=== PATIENT | female | born 1990 | race African-American/Black ===

== ENCOUNTER 2017-07-10 18:30 | Emergency (ER) | payer MEDICAID ==
[~2017-07-10] VITALS: Ht 165.1 cm; Wt 130.0 kg
[~2017-07-10 18:30] MED LIST: PHEN-556 PO; TOPI1CAP27 PO
[2017-07-10 18:40] VITALS: BP 143/87; PULSE 99; RESP 16; TEMP 98.7; O2SAT 99
--- NOTE | 2017-07-10 19:02 | PD ---
HPI . Cold symptoms Chief Complaint: Cold / Flu Symptoms Time Seen by Provider: 18:46 Travel History International Travel<30 days: No Contact w/Intl Traveler<30days: No Traveled to known affect area: No History of Present Illness HPI 26-year-old female presents emergency department for evaluation of cold and flu symptoms 5 days. Patient states she has chills, is coughing up yellow phlegm and has painful urination. He is unsure if she has had any fevers since she doesn't take her temperature at home. Patient denies any chest pain, shortness breath, abdominal pain, nausea, vomiting, diarrhea or lightheadedness. PFSH Past Medical History Diminished Hearing: No Tetanus Vaccination: Unknown Influenza Vaccination: Yes ?: Not LMP: NOW Past Surgical History Section: Yes Tympanostomy Tube: Yes (AND ADNOIDS) Social History Alcohol Use: No Tobacco Use: No Substance Use: No Allergies-Medications (Allergen,Severity, Reaction): Coded Allergies: Penicillins (Verified Allergy, Unknown, Hives, 07/10/17) Reported Meds & Prescriptions Reported Meds & Active Scripts Active Reported Lomaira (Phentermine HCl) 8 Mg Tab 37.5 Mg PO DAILY Review of Systems Except as stated in HPI: all other systems reviewed are Neg Physical Exam Narrative GENERAL: Well-nourished, well-developed 26-year-old female patient in no acute distress. SKIN: Focused skin assessment warm/dry. HEAD: Normocephalic. Atraumatic. EYES: No scleral icterus. No injection or drainage. NECK: Supple, trachea midline. No JVD or lymphadenopathy. THROAT: Tonsillar hypertrophy noted to bilateral tonsils but predominantly on the left. No pharyngeal injection, exudates. Airway is patent. CARDIOVASCULAR: Regular rate and rhythm without murmurs, gallops, or rubs. RESPIRATORY: Breath sounds equal bilaterally. No accessory muscle use. GASTROINTESTINAL: Abdomen soft, non-tender, nondistended. MUSCULOSKELETAL: No cyanosis, or edema. BACK: Nontender without obvious deformity. No CVA tenderness. r Data Data Last Documented VS Vital Signs Date Time Temp Pulse Resp B/P (MAP) Pulse Ox O2 Delivery O2 Flow Rate FiO2 07/10/17 18:40 98.7 99 16 143/87 (105) 99 Orders Orders Urinalysis - C+S If Indicated (07/10/17 18:56) Labs Laboratory Tests Test 07/10/17 19:35 Urine Color YELLOW Urine Turbidity SLIGHT Urine pH 5.5 Urine Specific [place] GREATER THAN 1.035 Urine Protein NEG mg/dL Urine Glucose (UA) NEG mg/dL Urine Ketones NEG mg/dL Urine Occult Blood MOD Urine Nitrite NEG Urine Bilirubin NEG Urine Leukocyte Esterase NEG Urine RBC 4-9 /hpf Urine WBC 6-8 /hpf Urine Squamous Epithelial Cells > 8 /hpf Urine Mucus MOD /lpf Microscopic Urinalysis Comment CULT NOT INDICATED MDM Medical Decision Making Medical Screen Exam Complete: Yes Emergency Medical Condition: Yes Differential Diagnosis Differential diagnoses including but not limited to URI, pharyngitis, UTI, viral syndrome Narrative Course 26-year-old female presents emergency department for evaluation of chills, coughing up phlegm and dysuria 5 days. Lungs are clear bilaterally. Patient did not cough the entire time she was in the emergency department. Patient is afebrile. UA was sent but patient is currently menstruating and that the specimen was contaminated. The patient had tonsillar hypertrophy. Patient will be treated with Motrin and discharged home with instructions to follow-up with primary care return to emergency Department with any worsening condition. Diagnosis Primary Impression: Acute viral pharyngitis Patient Instructions: General Instructions, Pharyngitis (ED) Additional Instructions: Please return to emergency department if your symptoms return or worsen. Follow up with your primary care provider. Take medications as prescribed. Med/Other Pt SpecificInfo: Prescription(s) given Scripts Ibuprofen (Ibuprofen) 600 Mg Tab 600 MG PO Q8HR Y for PAIN, #10 TAB 0 Refills Prov: Kathleen Dominguez 07/10/17 Disposition: 01 DISCHARGE HOME Condition: Stable Kathleen Dominguez Jul 10, 2017 19:02
[2017-07-10 19:44] LABS: BLOOD, URINE MOD (NEG); GLUCOSE,URINE NEG (NEG); KETONE, URINE NEG (NEG); NITRITE,URINE NEG (NEG); PH, URINE 5.5 (5.0-8.5)
[2017-07-10 19:49] LABS: URINE COLOR YELLOW (YELLW/STRAW)
[2017-07-10 19:51] LABS: MUCUS URINE MOD /lpf (OCC); SQUAMOUS EPITHELIAL CELL URINE > 8 /hpf (0-5)
[2017-07-10 19:52] LABS: COMMENT (UR) CULT NOT INDICATED; CULTURE IF INDICATED CULT NOT INDICATED
[2017-07-10] MEDS ORDERED: IBUP-232 PO (19:59)
== END 2017-07-10 20:12 | disposition home or self-care (01) ==
LOC: PHED 18:30 → MERGE 18:30 → PHEFT 20:12
DX: J02.9 Acute pharyngitis, unspecified (principal); J35.1 Hypertrophy of tonsils; R30.0 Dysuria
CPT/HCPCS: 81001; 99283

== ENCOUNTER 2017-11-09 21:30 | Emergency (ER) | payer MEDICAID ==
[~2017-11-09] VITALS: Ht 167.6 cm; Wt 134.0 kg
[~2017-11-09 21:30] MED LIST changes: +IBUP-232 PO; -TOPI1CAP27 PO
[2017-11-09 21:46] VITALS: BP 157/93; PULSE 100; RESP 20; TEMP 102.6; O2SAT 99
[2017-11-09] MEDS ORDERED: SODIUM CHLOR 0.9% 1000 ML INJ 1,000 ML IV SCH (22:07)
--- NOTE | 2017-11-09 22:11 | PD ---
HPI Chief Complaint: Cold / Flu Symptoms Time Seen by Provider: 22:02 Travel History International Travel<30 days: No Contact w/Intl Traveler<30days: No Traveled to known affect area: No History of Present Illness HPI 26-year-old female approximately 14 weeks , here for evaluation of chills, congestion, fever. Symptoms have been going on for about 2-3 days. She has had subjective fevers and chills and has not checked her temperature until she was checked in triage today and was noted to have a temp of 102.6F. She reports that she is about 16 weeks and had an IUP confirmed that another hospital. 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 No abdominal pain, vaginal bleeding, or discharge. She denies cough. PFSH Past Medical History Diminished Hearing: No Tetanus Vaccination: Unknown ?: Not Past Surgical History Section: Yes Tympanostomy Tube: Yes (AND ADNOIDS) Social History Alcohol Use: No Tobacco Use: No Substance Use: No Allergies-Medications (Allergen,Severity, Reaction): Coded Allergies: amoxicillin (Verified Allergy, Severe, Hives, 11/09/17) Penicillins (Verified Allergy, Unknown, Hives, 11/09/17) Reported Meds & Prescriptions Reported Meds & Active Scripts Active Macrobid (Nitrofurantoin Monoh/Nitrofur Macro) 100 Mg Cap 100 Mg PO BID 7 Days Tamiflu (Oseltamivir Phosphate) 75 Mg Cap 75 Mg PO BID 5 Days Ibuprofen 600 Mg Tab 600 Mg PO Q8HR PRN Reported Lomaira (Phentermine HCl) 8 Mg Tab 37.5 Mg PO DAILY Review of Systems Except as stated in HPI: all other systems reviewed are Neg Physical Exam Narrative GENERAL: Well-developed, well-nourished, comfortable, no apparent distress. SKIN: Focused skin assessment warm/dry. No rash. HEAD: Atraumatic. Normocephalic. EYES: Pupils equal and round. No scleral icterus. No injection or drainage. ENT: No nasal bleeding or discharge. Mucous membranes pink and moist. NECK: Trachea midline. No JVD. No nuchal rigidity. CARDIOVASCULAR: Regular rate and rhythm. RESPIRATORY: No accessory muscle use. Clear to auscultation. Breath sounds equal bilaterally. GASTROINTESTINAL: Abdomen soft, non-tender, nondistended. MUSCULOSKELETAL: No obvious deformities. No clubbing. No cyanosis. No edema. NEUROLOGICAL: Awake and alert. No obvious cranial nerve deficits. Motor grossly within normal limits. Normal speech. PSYCHIATRIC: Appropriate mood and affect; insight and judgment normal. Data Data Last Documented VS Vital Signs Date Time Temp Pulse Resp B/P (MAP) Pulse Ox O2 Delivery O2 Flow Rate FiO2 11/10/17 00:28 18 99 Room Air 11/09/17 23:46 99.5 11/09/17 21:46 100 157/93 (114) Orders Orders Complete Blood Count With Diff (11/09/17 22:07) Comprehensive Metabolic Panel (11/09/17 22:07) Urinalysis - C+S If Indicated (11/09/17 22:07) Iv Access Insert/Monitor (11/09/17 22:07) Ecg Monitoring (11/09/17 22:07) Oximetry (11/09/17 22:07) Sodium Chlor 0.9% 1000 Ml Inj (Ns 1000 M (11/09/17 22:07) Sodium Chloride 0.9% Flush (Ns Flush) (11/09/17 22:15) Influenzae A/B Antigen (11/09/17 22:07) Group A Rapid Strep Screen (11/09/17 22:07) Acetaminophen (Tylenol) (11/09/17 22:15) Electrocardiogram (11/09/17 ) Urine Culture (11/09/17 22:40) Strep Culture (Group A) (11/09/17 22:40) Ceftriaxone Inj (Rocephin Inj) (11/09/17 23:15) Sodium Chlor 0.9% 1000 Ml Inj (Ns 1000 M (11/09/17 23:15) Nitrofurantoin Monohyd Macrocr (Macrobid (11/09/17 23:15) Oseltamivir (Tamiflu) (11/10/17 00:00) Chest, Single Ap (11/10/17 ) Lung Quantification Perfusion (11/10/17 ) Ckmb (Isoenzyme) Profile (11/09/17 22:40) Troponin I (11/09/17 22:40) Labs Laboratory Tests Test 11/09/17 22:40 White Blood Count 7.6 TH/MM3 Red Blood Count 4.18 MIL/MM3 Hemoglobin 11.0 GM/DL Hematocrit 33.5 % Mean Corpuscular Volume 80.2 FL Mean Corpuscular Hemoglobin 26.4 PG Mean Corpuscular Hemoglobin Concent 32.9 % Red Cell Distribution Width 12.8 % Platelet Count 263 TH/MM3 Mean Platelet Volume 7.7 FL Neutrophils (%) (Auto) 63.6 % Lymphocytes (%) (Auto) 24.3 % Monocytes (%) (Auto) 10.0 % Eosinophils (%) (Auto) 0.3 % Basophils (%) (Auto) 1.8 % Neutrophils # (Auto) 4.9 TH/MM3 Lymphocytes # (Auto) 1.8 TH/MM3 Monocytes # (Auto) 0.8 TH/MM3 Eosinophils # (Auto) 0.0 TH/MM3 Basophils # (Auto) 0.1 TH/MM3 CBC Comment DIFF FINAL Differential Comment Urine Color YELLOW Urine Turbidity SLIGHT Urine pH 6.0 Urine Specific [place] 1.019 Urine Protein NEG mg/dL Urine Glucose (UA) NEG mg/dL Urine Ketones NEG mg/dL Urine Occult Blood NEG Urine Nitrite NEG Urine Bilirubin NEG Urine Leukocyte Esterase SMALL Urine RBC 0-2 /hpf Urine WBC 9-14 /hpf Urine Squamous Epithelial Cells > 8 /hpf Urine Bacteria MANY /hpf Microscopic Urinalysis Comment CULTURE INDICATED Blood Urea Nitrogen 8 MG/DL Creatinine 0.68 MG/DL Random Glucose 88 MG/DL Total Protein 7.3 GM/DL Albumin 3.0 GM/DL Calcium Level 8.7 MG/DL Alkaline Phosphatase 62 U/L Aspartate Amino Transf (AST/SGOT) 10 U/L Alanine Aminotransferase (ALT/SGPT) 20 U/L Total Bilirubin 0.2 MG/DL Sodium Level 129 MEQ/L Potassium Level 3.5 MEQ/L Chloride Level 98 MEQ/L Carbon Dioxide Level 22.5 MEQ/L Anion Gap 9 MEQ/L Estimat Glomerular Filtration Rate 128 ML/MIN [facility] Medical Decision Making Medical Screen Exam Complete: Yes Emergency Medical Condition: Yes Interpretation(s) EKG: Sinus, rate 97, normal axis, normal intervals, no acute ischemic abnormality, S1Q3T3 pattern Differential Diagnosis Influenza, URI, viral illness, dehydration Narrative Course Initial vital signs show heart rate 100, blood pressure 157/93, pulse ox 99% on room air, oral temp of 102.6 degrees Fahrenheit. Blood pressure and heart rate improved after receiving 2 L of normal saline IV and oral Tylenol. Temp improved to 99.5F. CBC: WBC 7.6, hemoglobin 11, hematocrit 33.5, platelets 267, monocytes 10%. CMP is remarkable for sodium 129, otherwise unremarkable. Influenza is negative. Group A strep is negative. UA: Small leukocyte esterase, 9-14 wbc's, greater than 8 squamous epithelial cells, many bacteria. Bedside transabdominal ultrasound performed by me shows an IUP with a heart rate of 160 bpm. Patient was made aware of all findings. She endorses having a substernal chest discomfort for the last couple of days that appears to be pleuritic in nature. She denies cough or hemoptysis, however she reports history of DVT after delivering one of her children requiring 8 weeks of anticoagulation several years ago. On exam there is no calf tenderness or swelling. She is overweight and is . Her EKG does have an S1Q3T3 pattern, and she is tachycardic with a fever. Influenza is negative and the patient does not have cough or upper respiratory symptoms. I discussed with the patient and I am concerned about a possible PE and discussed the plan of performing chest x-ray and VQ scan. She understands that there is some radiation exposure with the VQ scan, however the benefits of performing the scan far outweigh the risks. She would like to proceed with the scan. At approximately 1:00 AM at the end of my shift the patient was signed out to Dr. Donovan to follow-up with VQ scan and disposition. Procedures Procedure Narrative Bedside transabdominal ultrasound: Using the curvilinear ultrasound probe in bedside transabdominal ultrasound was performed and shows an IUP with a heart rate of 160 bpm. Scripts Nitrofurantoin Monohydrate Macrocrystals (Macrobid) 100 Mg Cap 100 MG PO BID for Infection for 7 Days, #14 CAP 0 Refills Prov: Dallin Martin MD 11/10/17 Oseltamivir (Tamiflu) 75 Mg Cap 75 MG PO BID for Mgmt Viral Infection for 5 Days, #10 CAP 0 Refills Prov: Dallin Martin MD 11/10/17 Dallin Martin MD Nov 09, 2017 22:11
[2017-11-09] MEDS ORDERED: SODIUM CHLORIDE 0.9% FLUSH 10 ML FLUSH IV FLUSH PRN (22:15)
[2017-11-09] MEDS ORDERED: ACETAMINOPHEN 325 MG TAB PO ONE (22:15)
[2017-11-09 22:49] LABS: BILIRUBIN, URINE NEG (NEG); BLOOD, URINE NEG (NEG); GLUCOSE,URINE NEG (NEG); KETONE, URINE NEG (NEG); NITRITE,URINE NEG (NEG); URINE LEUKOCYTE ESTERASE SMALL (NEG)
[2017-11-09 22:50] LABS: AUTOMATED NEUTROPHIL # 4.9 TH/MM3 (1.8-7.7); BASOPHIL # 0.1 TH/MM3 (0-0.2); BASOPHIL % 1.8 % (0.0-2.0); EOSINOPHIL % 0.3 % (0.0-4.0); HEMATOCRIT 33.5 % (35.0-46.0); LYMPH % 24.3 % (9.0-44.0); LYMPHOCYTE # 1.8 TH/MM3 (1.0-4.8); MEAN CELL VOLUME 80.2 FL (80.0-100.0); MEAN CORPUSCULAR HEMOGLOBIN 26.4 PG (27.0-34.0); MEAN CORPUSCULAR HGB CONC 32.9 % (32.0-36.0); MEAN PLATELET VOLUME 7.7 FL (7.0-11.0); MONOCYTE # 0.8 TH/MM3 (0-0.9); NEUT % 63.6 % (16.0-70.0); PLATELET COUNT 263 TH/MM3 (150-450); RED BLOOD COUNT 4.18 MIL/MM3 (4.00-5.30); RED CELL DISTRIBUTION WIDTH 12.8 % (11.6-17.2); WHITE BLOOD COUNT 7.6 TH/MM3 (4.0-11.0)
[2017-11-09 22:56] LABS: URINE COLOR YELLOW (YELLW/STRAW)
[2017-11-09 22:58] LABS: BACTERIA, URINE MANY /hpf; CHLORIDE 98 MEQ/L (98-107); RBC, URINE 0-2 /hpf (0-3); SODIUM (NA) 129 MEQ/L (136-145); SQUAMOUS EPITHELIAL CELL URINE > 8 /hpf (0-5)
[2017-11-09 23:01] LABS: BICARBONATE 22.5 MEQ/L (21.0-32.0); CALCIUM 8.7 MG/DL (8.5-10.1)
[2017-11-09 23:02] LABS: BLOOD UREA NITROGEN 8 MG/DL (7-18); GLUCOSE,RANDOM 88 MG/DL (74-106)
[2017-11-09 23:04] LABS: ALT (GPT) 20 U/L (10-53); AST (GOT) 10 U/L (15-37)
[2017-11-09 23:05] LABS: CREATININE 0.68 MG/DL (0.50-1.00); GLOMERULAR FILTRATION RATE 128 ML/MIN (>89)
[2017-11-09 23:06] LABS: TOTAL BILIRUBIN ADULT 0.2 MG/DL (0.2-1.0); TOTAL PROTEIN 7.3 GM/DL (6.4-8.2)
[2017-11-09 23:07] LABS: ALKALINE PHOSPHATASE 62 U/L (45-117)
[2017-11-09] MEDS ORDERED: NITROFURANTOIN MONOHYD MACROCR 100 MG CAP PO ONE (23:15)
[2017-11-09] MEDS ORDERED: SODIUM CHLOR 0.9% 1000 ML INJ 1,000 ML IV ONE (23:15)
[2017-11-09] MEDS ORDERED: cefTRIAXone INJ 1,000 MG in SODIUM CHLORIDE 0.9% INJ 100 ML IV ONE (23:15)
[2017-11-09 23:46] VITALS: RESP 18; TEMP 99.5; O2SAT 99
[2017-11-10] MEDS ORDERED: OSELTAMIVIR PHOSPHATE 75 MG CAP PO ONE
[2017-11-10] MEDS ORDERED: MACR100C2 PO (00:25)
[2017-11-10] MEDS ORDERED: OSEL75 PO (00:25)
[2017-11-10 00:28] VITALS: RESP 18; O2SAT 99
--- NOTE | 2017-11-10 00:29 | RADRPT ---
EXAM DATE/TIME: 11/10/2017 00:13 [facility] COMPARISON: No previous studies available for comparison. INDICATIONS : Cough, chest pain for 4 days MEDICAL HISTORY : None. SURGICAL HISTORY : None. ENCOUNTER: Initial ACUITY: 4 - 6 days PAIN SCORE: 8/10 LOCATION: Left chest FINDINGS: A single view of the chest demonstrates the lungs to be symmetrically aerated without evidence of mas s, infiltrate or effusion. The cardiomediastinal contours are unremarkable. Osseous structures are intact. CONCLUSION: No acute disease. René Tovar MD on November 10, 2017 at 0:27 Board Certified Radiologist. This report was verified electronically.
[2017-11-10 00:41] LABS: TROPONIN I LESS THAN 0.02 NG/ML (0.02-0.05)
[2017-11-10 00:43] VITALS: BP 124/61; PULSE 90; RESP 18; O2SAT 100
[2017-11-10] MEDS ORDERED: ONDANSETRON HCL 4 MG/2 ML VIAL IV PUSH ONE (00:45)
--- NOTE | 2017-11-10 02:52 | RADRPT ---
EXAM DATE/TIME: 11/10/2017 02:26 [facility] COMPARISON: No previous studies available for comparison. INDICATIONS : Short of breath for 3 days. DOSE: 1 mCi Tc99m Labeled MAA IV MEDICAL HISTORY : None SURGICAL HISTORY : section. ENCOUNTER: Initial ACUITY: 3 days PAIN SCALE: 3/10 LOCATION: Bilateral chest TECHNIQUE: The patient was injected with MAA, and eight-view perfusion scan was performed. FINDINGS: PERFUSION: There is a homogenous pattern of radiotracer uptake throughout both lungs. CONCLUSION: 1. Negative for pulmonary embolus. René Tovar MD on November 10, 2017 at 2:50 Board Certified Radiologist. This report was verified electronically.
--- NOTE | 2017-11-10 03:11 | PD ---
Physical Exam Time Seen by Provider: 03:09 Narrative : Left this patient with me to check the lung scan and make a disposition, likely discharge. Data Data Last Documented VS Vital Signs Date Time Temp Pulse Resp B/P (MAP) Pulse Ox O2 Delivery O2 Flow Rate FiO2 11/10/17 00:43 90 18 124/61 (82) 100 Room Air 11/09/17 23:46 99.5 Orders Orders Complete Blood Count With Diff (11/09/17 22:07) Comprehensive Metabolic Panel (11/09/17 22:07) Urinalysis - C+S If Indicated (11/09/17 22:07) Iv Access Insert/Monitor (11/09/17 22:07) Ecg Monitoring (11/09/17 22:07) Oximetry (11/09/17 22:07) Sodium Chlor 0.9% 1000 Ml Inj (Ns 1000 M (11/09/17 22:07) Sodium Chloride 0.9% Flush (Ns Flush) (11/09/17 22:15) Influenzae A/B Antigen (11/09/17 22:07) Group A Rapid Strep Screen (11/09/17 22:07) Acetaminophen (Tylenol) (11/09/17 22:15) Electrocardiogram (11/09/17 ) Urine Culture (11/09/17 22:40) Strep Culture (Group A) (11/09/17 22:40) Ceftriaxone Inj (Rocephin Inj) (11/09/17 23:15) Sodium Chlor 0.9% 1000 Ml Inj (Ns 1000 M (11/09/17 23:15) Nitrofurantoin Monohyd Macrocr (Macrobid (11/09/17 23:15) Oseltamivir (Tamiflu) (11/10/17 00:00) Chest, Single Ap (11/10/17 ) Ckmb (Isoenzyme) Profile (11/09/17 22:40) Troponin I (11/09/17 22:40) Ondansetron Inj (Zofran Inj) (11/10/17 00:45) Lung Scan - Perfusion (11/10/17 ) Labs Laboratory Tests Test 11/09/17 22:40 White Blood Count 7.6 TH/MM3 Red Blood Count 4.18 MIL/MM3 Hemoglobin 11.0 GM/DL Hematocrit 33.5 % Mean Corpuscular Volume 80.2 FL Mean Corpuscular Hemoglobin 26.4 PG Mean Corpuscular Hemoglobin Concent 32.9 % Red Cell Distribution Width 12.8 % Platelet Count 263 TH/MM3 Mean Platelet Volume 7.7 FL Neutrophils (%) (Auto) 63.6 % Lymphocytes (%) (Auto) 24.3 % Monocytes (%) (Auto) 10.0 % Eosinophils (%) (Auto) 0.3 % Basophils (%) (Auto) 1.8 % Neutrophils # (Auto) 4.9 TH/MM3 Lymphocytes # (Auto) 1.8 TH/MM3 Monocytes # (Auto) 0.8 TH/MM3 Eosinophils # (Auto) 0.0 TH/MM3 Basophils # (Auto) 0.1 TH/MM3 CBC Comment DIFF FINAL Differential Comment Urine Color YELLOW Urine Turbidity SLIGHT Urine pH 6.0 Urine Specific [place] 1.019 Urine Protein NEG mg/dL Urine Glucose (UA) NEG mg/dL Urine Ketones NEG mg/dL Urine Occult Blood NEG Urine Nitrite NEG Urine Bilirubin NEG Urine Leukocyte Esterase SMALL Urine RBC 0-2 /hpf Urine WBC 9-14 /hpf Urine Squamous Epithelial Cells > 8 /hpf Urine Bacteria MANY /hpf Microscopic Urinalysis Comment CULTURE INDICATED Blood Urea Nitrogen 8 MG/DL Creatinine 0.68 MG/DL Random Glucose 88 MG/DL Total Protein 7.3 GM/DL Albumin 3.0 GM/DL Calcium Level 8.7 MG/DL Alkaline Phosphatase 62 U/L Aspartate Amino Transf (AST/SGOT) 10 U/L Alanine Aminotransferase (ALT/SGPT) 20 U/L Total Bilirubin 0.2 MG/DL Sodium Level 129 MEQ/L Potassium Level 3.5 MEQ/L Chloride Level 98 MEQ/L Carbon Dioxide Level 22.5 MEQ/L Anion Gap 9 MEQ/L Estimat Glomerular Filtration Rate 128 ML/MIN Total Creatine Kinase 47 U/L Troponin I LESS THAN 0.02 NG/ML [facility] Medical Record Reviewed: Yes Supervised Visit with KP: Yes Interpretation(s) Influenza a/B antigen is negative for flu a and flu B antigen. The perfusion lung scan shows no pulmonary embolus. The chest x-ray shows no acute change. The EKG shows sinus rhythm with a rate of [address] elevation or depression. Differential Diagnosis Pulmonary embolus, COPD, viral syndrome, pneumonia, flu syndrome Narrative Course The patient appears to have a viral upper respiratory infection. There is no evidence for any of the other entities as above. Plan: Follow-up with her primary care physician next week Additional Instruction: Follow-up with your primary care physician next week. Drink plenty of liquids and rested. She will get prochlorperazine for nausea. Med/Other Pt SpecificInfo: Prescription(s) given Scripts Prochlorperazine Maleate (Prochlorperazine Maleate) 10 Mg Tab 10 MG PO Q6H Y for NAUSEA OR VOMITING, #30 TAB 0 Refills Prov: Barry Donovan MD 11/10/17 Nitrofurantoin Monohydrate Macrocrystals (Macrobid) 100 Mg Cap 100 MG PO BID for Infection for 7 Days, #14 CAP 0 Refills Prov: Dallin Martin MD 11/10/17 Oseltamivir (Tamiflu) 75 Mg Cap 75 MG PO BID for Mgmt Viral Infection for 5 Days, #10 CAP 0 Refills Prov: Dallin Martin MD 11/10/17 Disposition: 01 DISCHARGE HOME Condition: Stable Barry Donovan MD Nov 10, 2017 03:11
[2017-11-10] MEDS ORDERED: PROC10TA PO (03:17)
[2017-11-10 03:50] VITALS: BP 122/64
--- NOTE | 2017-11-10 14:31 | EKG ---
Date Performed: 11/09/2017 Time Performed: 22:16:08 PTAGE: 26 years EKG: Sinus rhythm NORMAL ECG NO PREVIOUS TRACING DOCTOR: Sandra Vann Interpretating Date/Time 11/10/2017 14:27:18
== END 2017-11-10 03:55 | disposition home or self-care (01) ==
LOC: PHEFT 21:30
DX: O26.892 Other specified pregnancy related conditions, second trimester (principal); Z3A.16 16 weeks gestation of pregnancy; Z88.0 Allergy status to penicillin; Z88.1 Allergy status to other antibiotic agents
CPT/HCPCS: 71045; 78580; 80053; 81001; 82550; 84484; 85025; 87081; 87086; 87804; 87880; 93005; 96361; 96374; 99285; A9540; J2405; J7030

== ENCOUNTER → 2018-01-10 | Outpatient (CLI) | payer MEDICAID ==
[~2018-01-10] MED LIST changes: +MACR100C2 PO; +OSEL75 PO; +PROC10TA PO
== END ==
LOC: HPND 08:47
PROVIDERS: ATTEND Obstetrics & Gynecology
DX: O44.02 Complete placenta previa NOS or without hemorrhage, second trimester (principal); O22.32 Deep phlebothrombosis in pregnancy, second trimester; O99.212 Obesity complicating pregnancy, second trimester; E66.01 Morbid (severe) obesity due to excess calories; Z68.42 Body mass index [BMI] 45.0-49.9, adult; O34.211 Maternal care for low transverse scar from previous cesarean delivery; O40.2XX0 Polyhydramnios, second trimester, not applicable or unspecified
CPT/HCPCS: 76811

== ENCOUNTER → 2018-02-07 | Outpatient (CLI) | payer MEDICAID | LOC: HPND 08:51 | PROVIDERS: ATTEND Obstetrics & Gynecology | DX: O99.212 Obesity complicating pregnancy, second trimester (principal); E66.01 Morbid (severe) obesity due to excess calories; Z68.42 Body mass index [BMI] 45.0-49.9, adult; O40.2XX0 Polyhydramnios, second trimester, not applicable or unspecified; O44.02 Complete placenta previa NOS or without hemorrhage, second trimester; O22.32 Deep phlebothrombosis in pregnancy, second trimester; O34.211 Maternal care for low transverse scar from previous cesarean delivery; O09.892 Supervision of other high risk pregnancies, second trimester; O99.112 Other diseases of the blood and blood-forming organs and certain disorders involving the immune mechanism complicating pregnancy, second trimester; D68.59 Other primary thrombophilia | CPT/HCPCS: 76816; 76817 ==

== ENCOUNTER → 2018-03-07 | Outpatient (CLI) | payer MEDICAID | LOC: HPND 08:35 | PROVIDERS: ATTEND Obstetrics & Gynecology | DX: O99.213 Obesity complicating pregnancy, third trimester (principal); E66.01 Morbid (severe) obesity due to excess calories; Z68.42 Body mass index [BMI] 45.0-49.9, adult; O40.3XX0 Polyhydramnios, third trimester, not applicable or unspecified; O44.03 Complete placenta previa NOS or without hemorrhage, third trimester | CPT/HCPCS: 76816 ==

== ENCOUNTER 2018-03-10 04:15 | Inpatient (IN) | payer MEDICAID ==
[~2018-03-10] VITALS: Ht 165.1 cm; Wt 140.0 kg
[2018-03-10] MEDS ORDERED: SODIUM CHLORIDE 0.9% FLUSH 10 ML FLUSH IV FLUSH PRN (05:00)
[2018-03-10] MEDS ORDERED: MAGNESIUM SULFATE 4 GM PREMIX 100 ML IV ONE (05:00)
[2018-03-10] MEDS ORDERED: CALCIUM GLUCONATE 10% 1 GM/10 ML VIAL IV PUSH PRN (05:00)
[2018-03-10 05:02] LABS: AUTOMATED NEUTROPHIL # 6.5 TH/MM3 (1.8-7.7); BASOPHIL # 0.1 TH/MM3 (0-0.2); BASOPHIL % 0.6 % (0.0-2.0); EOSINOPHIL # 0.1 TH/MM3 (0-0.4); EOSINOPHIL % 1.4 % (0.0-4.0); HEMATOCRIT 32.7 % (35.0-46.0); LYMPH % 19.1 % (9.0-44.0); LYMPHOCYTE # 1.7 TH/MM3 (1.0-4.8); MEAN CELL VOLUME 80.5 FL (80.0-100.0); MEAN CORPUSCULAR HEMOGLOBIN 27.2 PG (27.0-34.0); MEAN CORPUSCULAR HGB CONC 33.7 % (32.0-36.0); MEAN PLATELET VOLUME 7.8 FL (7.0-11.0); MONO % 7.5 % (0.0-8.0); MONOCYTE # 0.7 TH/MM3 (0-0.9); NEUT % 71.4 % (16.0-70.0); PLATELET COUNT 296 TH/MM3 (150-450); RED BLOOD COUNT 4.07 MIL/MM3 (4.00-5.30); RED CELL DISTRIBUTION WIDTH 15.8 % (11.6-17.2); WHITE BLOOD COUNT 9.2 TH/MM3 (4.0-11.0)
--- NOTE | 2018-03-10 05:13 | HHI.HP ---
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 She is having little to no pain however she is britni every 3-4 minutes, heart rate tracing is reactive. 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 Also this is noted to have polyhydramnios and an LGA baby on a recent OB diagnostic ultrasound done 3 days ago Weeks Gestation: 31 Para: 3 : 4 History Past Medical History Narrative Medical In a hypercoagulable state due to protein S deficiency led to a DVT after her last ended that was in her left lower leg which was treated with Lovenox and warfarin p.o. Obstetric History Obstetric History Patient had 2 vaginal deliveries and a section for distress and preeclampsia Past Surgical History Narrative Surgical section Family History Family History: Social History Alcohol Use: No Tobacco Use: No Substance Abuse: No Allergies-Medications (Allergen,Severity, Reaction): Coded Allergies: amoxicillin (Verified Allergy, Severe, Hives, 11/09/17) Penicillins (Verified Allergy, Unknown, Hives, 11/09/17) Home Meds Active Scripts Prochlorperazine Maleate (Prochlorperazine Maleate) 10 Mg Tab, 10 MG PO Q6H Y for NAUSEA OR VOMITING, #30 TAB 0 Refills Prov:Barry Donovan MD 11/10/17 Nitrofurantoin Monohydrate Macrocrystals (Macrobid) 100 Mg Cap, 100 MG PO BID for Infection for 7 Days, #14 CAP 0 Refills Prov:Dallin Martin MD 11/10/17 Oseltamivir (Tamiflu) 75 Mg Cap, 75 MG PO BID for Mgmt Viral Infection for 5 Days, #10 CAP 0 Refills Prov:Dallin Martin MD 11/10/17 Ibuprofen (Ibuprofen) 600 Mg Tab, 600 MG PO Q8HR Y for PAIN, #10 TAB 0 Refills Prov:Kathleen Dominguez 07/10/17 Reported Medications Phentermine (Lomaira) 8 Mg Tab, 37.5 MG PO DAILY for Weight Management, #90 TAB 0 Refills 04/07/17 Review of Systems General / Constitutional: No: Fever, Weight Gain, Chills, Other Eyes: No: Diploplia, Blurred Vision, Visual changes, Pain, Photophobia HENT: No: Headaches, Vertigo, Lightheadedness Cardiovascular: No: Irregular Rhythm, Chest Pain or Discomfort, Palpitations, Tachycardia, Syncope, Varicosities, Edema, Cyanosis Respiratory: No: Cough, Short of Breath, Other Gastrointestinal: No: Nausea, Vomiting, Diarrhea Genitourinary: Vaginal Bleeding, No: Decreased Urinary Output, Oliguria Musculoskeletal: No: Limited ROM, Weakness, Cramping, Edema, Pain Skin: No Rash, No Itching, No Dryness, No Lumps, No Change in Pigmentation, No Change in Nails, No Alopecia, No Lesions Neurologic: No: Weakness, Dizziness, Syncope, Focal Abnormalities, Coordination Problem, Headache, Slurred Speech, Seizures Psychiatric: No: Depression, Suicidal Ideations, Homicidal Ideation Endocrine: No: Heat Intolerance, Cold Intolerance, Polydipsia, Polyuria, Other Physical Exam Narrative GENERAL: Well-nourished, obese patient. SKIN: Warm and dry. HEAD: Normocephalic and atraumatic. EYES: No scleral icterus. No injection or drainage. ENT: No nasal drainage noted. Mucous membranes pink. Airway patent. NECK: Supple, trachea midline. No JVD. CARDIOVASCULAR: Regular rate and rhythm without murmurs, gallops, or rubs. RESPIRATORY: Breath sounds equal bilaterally. No accessory muscle use. BREASTS: Bilateral exam showed no masses , no retractions, no nipple discharge. ABDOMEN/GI: Abdomen soft, non-tender, bowel sounds present, no rebound, no guarding has a large pannus Gravid to [32-] weeks size Fundal Height: [-32] GENITOURINARY: External Genitalia: intact and normal in appearance Is a large blood clot size of a tennis ball in the vagina but no active bleeding just an ooze from the cervix Cervix: [Appears closed but is difficult to visualize and no digital exam was done-] Effacement: [Thick-] Station: [High-] Presentation: [-Was cephalic 3 days ago on ultrasound] Membranes: [intact ] Uterine Contractions: [Every 3-4 minutes-] FHT's: Category: [1-] Baseline: [133-] Reactive: [R-] Variability: [mod-] Decels: [none-] EXTREMITIES: No cyanosis or edema. BACK: Nontender without obvious deformity. No CVA tenderness. NEUROLOGICAL: Awake and alert. Motor and sensory grossly within normal limits. Five out of 5 muscle strength in all muscle groups. Normal speech. Caprini VTE Risk Assessment Caprini VTE Risk Assessment: Mod/High Risk (score >= 2) Caprini Risk Assessment Model Point Value = 1 Point Value = 2 Point Value = 3 Point Value = 5 Age 41-60 Minor surgery BMI > 25 kg/m2 Swollen legs Varicose veins or History of unexplained or recurrent spontaneous Oral contraceptives or hormone replacement Sepsis (< 1 month) Serious lung disease, including pneumonia (< 1 month) Abnormal pulmonary function Acute myocardial infarction Congestive heart failure (< 1 month) History of inflammatory bowel disease Medical patient at bed rest Age 61-74 Arthroscopic surgery Major open surgery (> 45 min) Laparoscopic surgery (> 45 min) Malignancy Confined to bed (> 72 hours) Immobilizing plaster cast Central venous access Age >= 75 History of VTE Family history of VTE Factor V Leiden Prothrombin [id number] Lupus anticoagulant Anticardiolipin antibodies Elevated serum homocysteine Heparin-induced thrombocytopenia Other congenital or acquired thrombophilia Stroke (< 1 month) Elective arthroplasty Hip, pelvis, or leg fracture Acute spinal cord injury (< 1 month) Prophylaxis Regimen Total Risk Factor Score Risk Level Prophylaxis Regimen 0-1 Low Early ambulation 2 Moderate Order ONE of the following: *Sequential Compression Device (SCD) *Heparin 5000 units SQ BID 3-4 Higher Order ONE of the following medications: *Heparin 5000 units SQ TID *Enoxaparin/Lovenox 40 mg SQ daily (WT < 150 kg, CrCl > 30 mL/min) *Enoxaparin/Lovenox 30 mg SQ daily (WT < 150 kg, CrCl > 10-29 mL/min) *Enoxaparin/Lovenox 30 mg SQ BID (WT < 150 kg, CrCl > 30 mL/min) AND/OR *Sequential Compression Device (SCD) 5 or more Highest Order ONE of the following medications: *Heparin 5000 units SQ TID (Preferred with Epidurals) *Enoxaparin/Lovenox 40 mg SQ daily (WT < 150 kg, CrCl > 30 mL/min) *Enoxaparin/Lovenox 30 mg SQ daily (WT < 150 kg, CrCl > 10-29 mL/min) *Enoxaparin/Lovenox 30 mg SQ BID (WT < 150 kg, CrCl > 30 mL/min) AND *Sequential Compression Device (SCD) Data Data Orders Orders Ob (2e) Additional Admit Info (03/10/18 04:48) Admit To Inpatient (03/10/18 ) Diet Npo (03/10/18 Breakfast) Vital Signs (Adult) [id number] AWAKE (03/10/18 04:50) Heart (03/10/18 04:50) Activity Bed Rest (03/10/18 04:50) Complete Blood Count With Diff (03/10/18 04:50) Urinalysis - C+S If Indicated (03/10/18 04:50) Sodium Chloride 0.9% Flush (Ns Flush) (03/10/18 09:00) Sodium Chloride 0.9% Flush (Ns Flush) (03/10/18 05:00) Ob/Psych Drug Screen, Urine (03/10/18 04:50) Betamethasone Inj (Celestone Soluspan In (03/10/18 05:00) Coag Profile (03/10/18 04:53) Type And Screen (03/10/18 04:53) Ondansetron Odt (Zofran Odt) (03/10/18 05:00) Urinary Catheter Management MARIE.Q8H (03/10/18 04:54) Magnesium Sulfate 40 Gm Premix (Magnesiu (03/10/18 04:54) Calcium Gluconate Inj (Calcium Gluconate (03/10/18 05:00) Comprehensive Metabolic Panel (03/10/18 04:54) Magnesium Sulfate 4 Gm Premix (Magnesium (03/10/18 05:00) Vancomycin Inj (Vancomycin Inj) (03/10/18 05:00) Labs Laboratory Tests Test 03/10/18 04:19 Assessment/Plan Assessment and Plan Impression -third trimester bleeding secondary to posterior previa with now the "sentinel bleed" at 31-32 weeks gestation Protein S deficiency for which she is on blood thinners of baby aspirin and Lovenox q d Polyhydramnios LGA baby Previous contractions Plan--admit to labor and delivery until delivery , plan IV mag sulfate for tocolyse this and neuro protection, check coagulation profile CBC CMP type and screen, would hold anticoagulation drugs at this time, IV vancomycin for antibiotic coverage,[allergic to penicillin] , betamethasone 12 mg , 2 injections 24 hours apart If patient has another large bleeding episode move to delivery by section Santhosh So II, MD Mar 10, 2018 05:13
[2018-03-10 05:15] LABS: INTERNATIONAL NORMALIZED RATIO 0.9 RATIO; PROTHROMBIN TIME - PATIENT 9.3 SEC (9.8-11.6)
[2018-03-10 05:20] LABS: ALBUMIN 2.7 GM/DL (3.4-5.0); AST (GOT) 10 U/L (15-37); BICARBONATE 21.1 MEQ/L (21.0-32.0); BLOOD UREA NITROGEN 8 MG/DL (7-18); CALCIUM 9.3 MG/DL (8.5-10.1); CHLORIDE 104 MEQ/L (98-107); CREATININE 0.68 MG/DL (0.50-1.00); GLOMERULAR FILTRATION RATE 127 ML/MIN (>89); GLUCOSE,RANDOM 100 MG/DL (74-106); SODIUM (NA) 138 MEQ/L (136-145)
[2018-03-10 05:25] LABS: ALKALINE PHOSPHATASE 79 U/L (45-117); ALT (GPT) 19 U/L (10-53); TOTAL BILIRUBIN ADULT 0.3 MG/DL (0.2-1.0); TOTAL PROTEIN 6.9 GM/DL (6.4-8.2)
[2018-03-10] MEDS: BETAMETHASONE SOD PHOS/ACETATE SUSP 30 MG/5 ML VIAL IM SCH (05:45)
[2018-03-10] MEDS: VANCOMYCIN INJ 1,000 MG in SODIUM CHLOR 0.9% 250 ML INJ 250 ML IV SCH ×2 (05:46→17:28)
[2018-03-10 06:17] LABS: BILIRUBIN, URINE NEG (NEG); BLOOD, URINE NEG (NEG); GLUCOSE,URINE NEG (NEG); KETONE, URINE NEG (NEG); MUCUS URINE FEW /lpf (OCC); NITRITE,URINE NEG (NEG); PH, URINE 6.5 (5.0-8.5); RENAL EPITHELIAL CELLS 1 /hpf; TRANSITIONAL EPI CELLS, URINE <1 /hpf; URINE COLOR YELLOW (YELLW/STRAW); URINE LEUKOCYTE ESTERASE NEG (NEG)
[2018-03-10] MEDS: MAGNESIUM SULFATE 40 GM PREMIX 1,000 ML IV SCH ×2 (06:17→21:30)
[2018-03-10] MEDS: SODIUM CHLORIDE 0.9% FLUSH 10 ML FLUSH IV FLUSH SCH ×2 (08:55→21:00)
--- NOTE | 2018-03-10 09:47 | HHI.PR ---
Subjective Remarks OB 27-year-old 003 with IUP at 31.2 with complicated by morbid obesity, polyhydramnios, macrosomia, complete placenta previa, history of DVT, previous delivery. The patient presented for vaginal bleeding and uterine contractions overnight. She is placed on magnesium sulfate and her first dose of betamethasone was administered. The patient has been on Lovenox and baby aspirin which was discontinued by Dr. So upon her arrival. The patient reports that her bleeding has improved since she arrived and her contractions have spaced out. We discussed the plan of care for today with continued bed rest, continue magnesium sulfate which will allow for neuro protection in the event she is to be delivered as well as to decrease the irritability of the uterus and for betamethasone. The patient is aware that she would be delivered by delivery if delivery is indicated. All of her questions and concerns were answered. heart tones are reassuring and we will continue monitoring. Objective Result Diagram: 03/10/18 0419 03/10/18 0419 Sarah Muro MD Mar 10, 2018 09:47
[2018-03-10] MEDS ORDERED: oxyCODONE/ACETAMINOPHEN 5 MG/325 MG TAB PO PRN (11:15)
[2018-03-10] MEDS: oxyCODONE/ACETAMINOPHEN 5 MG/325 MG TAB PO PRN ×3 (11:45→22:00)
[2018-03-10 13:31] LABS: HEMOGLOBIN A1C 5.3 % (4.3-6.0)
[2018-03-10] MEDS: ONDANSETRON ODT 4 MG TAB PO PRN (14:06)
--- NOTE | 2018-03-10 20:12 | HHI.PR ---
Subjective Remarks OB 27-year-old 003 with IUP at 31.2 with complicated by morbid obesity, polyhydramnios, macrosomia, complete placenta previa, history of DVT, previous delivery. The patient presented for vaginal bleeding and uterine contractions overnight. She is on magnesium sulfate and her first dose of betamethasone was administered during the night. The patient has been on Lovenox and baby aspirin which was discontinued by Dr. So upon her arrival. The patient reports that her bleeding has continued to improve today and reports only infrequent and irregular contractions at this time. She reports good movement. I reiterated the plan of care for this evening with continued bed rest, continue magnesium sulfate which will allow for neuro protection in the event she is to be delivered as well as to decrease the irritability of the uterus and for betamethasone. The patient is aware that she would be delivered by delivery if delivery is indicated. All of her questions and concerns were answered as were the questions of her family members who were present and she gave permission to speak with. heart tones are reassuring in the 120s with moderate band booker variability and good acceleartions; we will continue monitoring and other care as indicated. Objective Result Diagram: 03/10/18 0419 03/10/18 0419 Sarah Muro MD Mar 10, 2018 20:12
[2018-03-11] MEDS: VANCOMYCIN INJ 1,000 MG in SODIUM CHLOR 0.9% 250 ML INJ 250 ML IV SCH ×2 (05:00→16:53)
[2018-03-11] MEDS: BETAMETHASONE SOD PHOS/ACETATE SUSP 30 MG/5 ML VIAL IM SCH (05:00)
--- NOTE | 2018-03-11 07:41 | PD.OB.ANTE ---
Subjective Diagnosis: (1) Placenta previa Diagnosis: Principal (2) Vaginal bleeding in Diagnosis: Principal Interval History Patient reports some mild spotting at baseline. She denies any contractions overnight. She complained of some cramping this morning. Antepartum ROS: Reports: Vaginal bleeding (spotting at baseline), movement normal, Denies: New complaints, Loss of fluid, Contractions (cramping this morning) ( Guy Gil MD R2) Objective Vital Signs 122/58, 96 Physical Exam GENERAL: Well-nourished, well-developed obese female patient. CARDIOVASCULAR: Regular rate and rhythm without murmurs, gallops, or rubs. RESPIRATORY: Breath sounds equal bilaterally. No accessory muscle use. ABDOMEN/GI: Abdomen soft, non-tender. GENITOURINARY: External Genitalia: Uterine Contractions: none FHT's: Category: Category 1 Baseline: 130 Reactive: Reactive Variability: Moderate Decels: None EXTREMITIES: No cyanosis or edema, non-tender, without signs of DVT. (Gyu Gil MD R2) Assessment and Plan Problem List: (1) Placenta previa ICD Codes: O44.00 - Complete placenta previa NOS or without hemorrhage, unspecified trimester Qualifiers: Qualified Codes: O44.03 - Complete placenta previa nos or without hemorrhage , third trimester (2) Vaginal bleeding in ICD Codes: O46.90 - Antepartum hemorrhage, unspecified, unspecified trimester Assessment and Plan Impression Third trimester bleeding secondary to posterior previa with now the "sentinel bleed" at 31-32 weeks gestation Protein S deficiency for which she is on blood thinners of baby aspirin and Lovenox qd - currently being held Polyhydramnios LGA baby Previous contractions Plan--admit to labor and delivery until delivery, plan IV mag sulfate for tocolysis and neuro protection for 24-48 hours, check coagulation profile CBC CMP type and screen, would hold anticoagulation drugs at this time, IV vancomycin for antibiotic coverage (allergic to penicillin), betamethasone 12 mg, 2 injections 24 hours apart If patient has another large bleeding episode move to delivery by section (Guy Gil MD R2) Assessment and Plan I personally saw and examined patient and participated in all metcalf decision making. Patient with morbid obesity, protein S deficiency, history of DVT, suspected macrosomia, polyhydramnios, prior delivery. Continue bedrest , routine care for placenta previa. Discussed tubal ligation with patient. Discussed that signing papers and subsequent maturation is required for tubal. Discussed alternatives at length including but not limited to Mirena/Paragard, other progesterone methods. Discussed she is not a candidate for estrogen containing methods due to her history of DVT. Discussed risks at length, including but not limited to failure of about 1%, the irreversible and permanent nature of the procedure, tubal regret, ectopic with need for emergent surgical intervention if ectopic results from tubal failure. [facility] (Sarah Muro MD) Guy Gil MD R2 Mar 11, 2018 07:41 Sarah Muro MD Mar 22, 2018 13:12
--- NOTE | 2018-03-11 08:35 | HHI.PR ---
Subjective Remarks [facility] [place] [facility] [place] Indications: IUP at 31w, morbid obesity, polyhydramnios, macrosomia, h/o DVT with protein S deficiency, complete placenta previa, h/o delivery heart rate baseline in the 120s with moderate local intermodal truck driver variability, good accelerations, no decelerations noted with a reactive NST and category 1 heart rate tracing Follow up with continued monitoring Final diagnosis:IUP at 31w, morbid obesity, polyhydramnios, macrosomia, h/ o DVT with protein S deficiency, complete placenta previa, h/o delivery , reassuring testing Objective Result Diagram: 03/10/18 0419 03/10/18 0419 Sarah Muro MD Mar 11, 2018 08:35
[2018-03-11] MEDS: ONDANSETRON ODT 4 MG TAB PO PRN (08:56)
[2018-03-11] MEDS: SODIUM CHLORIDE 0.9% FLUSH 10 ML FLUSH IV FLUSH SCH ×2 (08:59→21:00)
[2018-03-11] MEDS: MAGNESIUM SULFATE 40 GM PREMIX 1,000 ML IV SCH (13:11)
[2018-03-11] MEDS: oxyCODONE/ACETAMINOPHEN 5 MG/325 MG TAB PO PRN (13:55)
[2018-03-11] MEDS: LACTATED RINGER'S 1000 ML INJ 1,000 ML IV SCH (13:55)
[2018-03-12] MEDS ORDERED: MAGNESIUM HYDROXIDE SUSP 30 ML CUP PO PRN (05:00)
[2018-03-12] MEDS: VANCOMYCIN INJ 1,000 MG in SODIUM CHLOR 0.9% 250 ML INJ 250 ML IV SCH ×2 (06:32→18:41)
--- NOTE | 2018-03-12 08:03 | PD.OB.ANTE ---
Subjective Diagnosis: (1) Placenta previa (2) Vaginal bleeding in Interval History Patient is doing well at this time no pain or bleeding,'s been on magnesium sulfate since 5 PM yesterday with no regular contractions Objective Physical Exam GENERAL: Well-nourished, well-developed patient. CARDIOVASCULAR: Regular rate and rhythm without murmurs, gallops, or rubs. RESPIRATORY: Breath sounds equal bilaterally. No accessory muscle use. ABDOMEN/GI: Abdomen soft, non-tender. Fundus: [-] GENITOURINARY: External Genitalia: intact and normal in appearance Uterine Contractions: [none-] FHT's: Category: [1-] Baseline: [-133] Reactive: [-R] Variability: [mod-] Decels: [-0] EXTREMITIES: No cyanosis or edema, non-tender, without signs of DVT. Assessment and Plan Problem List: (1) Placenta previa ICD Codes: O44.00 - Complete placenta previa NOS or without hemorrhage, unspecified trimester Qualifiers: Qualified Codes: O44.03 - Complete placenta previa nos or without hemorrhage , third trimester (2) Vaginal bleeding in ICD Codes: O46.90 - Antepartum hemorrhage, unspecified, unspecified trimester Assessment and Plan Impression Third trimester bleeding secondary to posterior previa with now the "sentinel bleed" at 31-32 weeks gestation Protein S deficiency for which she is on blood thinners of baby aspirin and Lovenox qd - currently being held Polyhydramnios LGA baby Previous contractions Plan--admit to labor and delivery until delivery, plan IV mag sulfate for tocolysis and neuro protection for 24-48 hours, check coagulation profile CBC CMP type and screen, would hold anticoagulation drugs at this time, IV vancomycin for antibiotic coverage (allergic to penicillin), betamethasone 12 mg, 2 injections 24 hours apart If patient has another large bleeding episode move to delivery by section Santhosh So II, MD Mar 12, 2018 08:02
[2018-03-12] MEDS: DOCUSATE SODIUM 100 MG CAP PO SCH ×2 (09:19→22:43)
[2018-03-13] MEDS: VANCOMYCIN INJ 1,000 MG in SODIUM CHLOR 0.9% 250 ML INJ 250 ML IV SCH (05:02)
--- NOTE | 2018-03-13 07:17 | PD.OB.ANTE ---
Subjective Diagnosis: (1) Placenta previa Diagnosis: Principal (2) Vaginal bleeding in Diagnosis: Principal Interval History Patient is doing well this morning and has no complaints. She does have concerns about staying in the hospital until delivery which could be up to 4 weeks if the goal is 36 weeks gestation because she has a 1-year-old at home. Her other 2 kids at 8 and 10 years old and okay but the 1-year-old may not do very well without her. She would like to move more within the hospital rather than be in bed all day. Antepartum ROS: Reports: movement normal, Denies: New complaints, Loss of fluid, Vaginal bleeding (mild spotting), Contractions (EkoAshley MD R2) Objective Physical Exam GENERAL: Well-nourished, well-developed patient. CARDIOVASCULAR: Regular rate and rhythm without murmurs, gallops, or rubs. RESPIRATORY: Breath sounds equal bilaterally. No accessory muscle use. Diminished breath sounds in bilateral bases ABDOMEN/GI: Abdomen soft, non-tender. Fundus: [gravid GENITOURINARY: Uterine Contractions: None FHT's: Category: I Baseline: 150 Reactive: accels present Variability: moderate Decels: none EXTREMITIES: No cyanosis or edema, non-tender, without signs of DVT. (EkAshley dias MD R2) Assessment and Plan Problem List: (1) Placenta previa ICD Codes: O44.00 - Complete placenta previa NOS or without hemorrhage, unspecified trimester Qualifiers: Qualified Codes: O44.03 - Complete placenta previa nos or without hemorrhage , third trimester (2) Vaginal bleeding in ICD Codes: O46.90 - Antepartum hemorrhage, unspecified, unspecified trimester Assessment and Plan Pt is a 27 at 31/5 weeks gestation with placenta previa that was admitted after a bleeding episode. She is s/p IV mag sulfate for tocolysis and neuroprotection (for 24-48 hours) and Betamethasone 12 mg, 2 injections 24 hours apart Impression * Third trimester bleeding secondary to posterior previa with now the "sentinel bleed" at 31-32 weeks gestation * FHT category I, reassuring * Protein S deficiency for which she is on blood thinners of baby aspirin and Lovenox qd * Currently holding aspiring and Lovenox due to acute bleeding episode * Polyhydramnios LGA baby * Previous * contractions * Stable Plan * Remain in the AP service until delivery - goal is 36 weeks gestation * If patient has another large bleeding episode move to delivery by section * monitoring Q4h * Allow time to move around within the hospital in a wheelchair, accompanied by a nurse * Discontinue Vancomycin 1000mg Q12h IV for antibiotic coverage (allergic to penicillin) * Respiratory incentive spirometer * Hematology consult for further management DW Dr. Muro (Ashley Gao MD R2) Assessment and Plan I personally saw and examined patient and participated in all metcalf decision making. Discussed continued bedrest and management of placenta previa. All of the patient's questions were answered. [facility] (Sarah Muro MD) Ashley Gao MD R2 Mar 13, 2018 07:17 Sarah Muro MD Mar 22, 2018 13:18
[2018-03-13] MEDS: SODIUM CHLORIDE 0.9% FLUSH 10 ML FLUSH IV FLUSH SCH ×2 (10:33→20:02)
[2018-03-13] MEDS: DOCUSATE SODIUM 100 MG CAP PO SCH ×2 (10:33→21:19)
[2018-03-13 15:02] VITALS: BP 134/62; PULSE 103
[2018-03-13] MEDS: LACTATED RINGER'S 1000 ML INJ 1,000 ML IV SCH (19:25)
[2018-03-13 19:52] VITALS: BP 124/64; PULSE 108
[2018-03-14] VITALS (12 sets, daily range): BP systolic 125–140; BP diastolic 56–75; PULSE 94–126; RESP 16–18; TEMP 97.8–98.8
--- NOTE | 2018-03-14 06:40 | MB ---
cc: Pineda Grady MD DATE: 03/13/2018 REASON FOR CONSULTATION: Patient with a history of protein S deficiency who is currently gestational week 31-32 and presents with vaginal bleeding. HISTORY OF PRESENT ILLNESS: This is a 27-year-old female who is a G4, P3 and is in her gestational week 31-32 who presents with vaginal bleeding. She states that she started spotting approximately 2-3 weeks ago and then had a fairly significant amount of vaginal bleeding over the past 2-3 days. She has a history of complete previa. The patient has been on Lovenox and baby aspirin for the past 1 month. She states that she developed DVT after her last , which was approximately 2 years ago. The patient was on anticoagulation for 6 months. She was placed on Coumadin previously. At the time of DVT, a hypercoagulable workup was completed which revealed protein S deficiency. The patient subsequently saw a technical engineer in [place]. A repeat hypercoagulable workup was completed and according to the patient, she was not found to have any underlying hypercoagulable state including protein S deficiency. Prior to her last DVT, she does not have any history of any DVT or pulmonary embolisms. She does not have any family history of pulmonary embolism or DVTs either. She does not smoke cigarettes. The anticoagulation was stopped on this admission. The patient states that her vaginal bleeding has stopped. She is ambulatory. Currently, she is in the bed. SCDs are in place. She denies any cough, congestion, hemoptysis, chest pain, or heart palpitations. REVIEW OF SYSTEMS: A comprehensive review of system was completed which is negative except as described in the HPI. PAST MEDICAL HISTORY: History of protein S deficiency, history of DVT. PAST SURGICAL HISTORY: x 1. FAMILY HISTORY: Reviewed and is noncontributory to this admission. SOCIAL HISTORY: She works as a RAMP SUPERVISOR. She does not drink alcohol. No tobacco abuse. No illicit drug use. MEDICATIONS: 1. Colace 100 mg p.o. b.i.d. 2. Milk of magnesia 30 mL p.r.n. 3. Percocet 5/325 p.r.n. 4. Zofran 4 mg p.o. q. 6 hours p.r.n. ALLERGIES: SHE IS ALLERGIC TO PENICILLIN AND AMOXICILLIN. PHYSICAL EXAMINATION: VITAL SIGNS: Reviewed in the EMR. They are stable. GENERAL: Well-developed, well-nourished female in no apparent distress. HEENT: Pupils are equal, round, reactive to light. EOMI. No oral thrush. No oral lesions. NECK: Supple. No JVD. No bruits. No lymphadenopathy. CHEST: Clear to auscultation bilaterally. CARDIAC: S1, S2. Regular rate and rhythm. ABDOMEN: Soft, distended. Bowel sounds are present. EXTREMITIES: Without any edema, erythema or cyanosis. SKIN: Without any petechiae, lesion or bruises. NEUROLOGIC: No focal deficits. PSYCHIATRIC: Mood and affect is appropriate. LABORATORY DATA: WBC 9.2, hemoglobin 11, MCV 80.5, platelet count is 296. Serum chemistries show sodium of 138, potassium 4, chloride 104, CO2 21.1, BUN 8, creatinine 0.68, GFR is 127, calcium is 9.3, AST is 10, ALT is 19, alkaline phosphatase 79, total protein 6.9, albumin is 2.7. Coags: PT is 9.3. INR is 0.9, PTT is 23.6. ASSESSMENT AND PLAN: This is a 27-year-old female who is currently in gestational week 31-32. She has a history of a DVT after her last , she was admitted to the hospital with vaginal bleeding. There is a questionable history of protein S deficiency. History of protein S deficiency in the setting of and a history of deep venous thrombosis and now presents with vaginal bleeding. After extensive discussion with the patient. It appears that patient developed a DVT after she delivered her last child approximately 2 years ago. In the post- setting, a hypercoagulable workup was obtained which revealed a protein S deficiency. The patient was started on anticoagulation and completed 6 months of anticoagulation. Protein S levels can be physiologically reduced during the . In addition, these levels can be reduced in acute thromboembolism. The anticoagulant, protein S decreases physiologically in all women. Thus in the post- setting, it is recommended that testing for protein S levels would be deferred until several weeks after delivery. According to the patient, she saw a technical engineer. He repeated a hypercoagulable workup and she was not found to have underlying protein S deficiency. Due to the concern for history of DVT and protein S deficiency in the past, her last puller recently started her on Lovenox and aspirin. She now presents with vaginal bleeding. I agree that we should hold off on further anticoagulation at this time. We will encourage ambulation, apply sequential compression devices. We will request records from her previous technical engineer in [place] to confirm the absence or presence of protein S deficiency. If on repeat testing a protein S deficiency was not present, I would not recommend any further anticoagulation. However, if repeat testing in the past confirmed the presence of protein S deficiency, then we will consider restarting anticoagulation in this patient; however, I would not recommend restarting aspirin given her recent vaginal bleeding. We will make further recommendations once we have received her records from her technical engineer in [place]. Thank you for allowing me to participate in the care of this patient. I will continue to follow this patient along. MD RONALDO Echavarria/KATHY , 06:01 AM , 06:39 AM CA
--- NOTE | 2018-03-14 08:28 | PD.OB.ANTE ---
Subjective Diagnosis: (1) Placenta previa Diagnosis: Principal (2) Vaginal bleeding in Diagnosis: Principal Interval History Patient is doing well this morning. She had an episode of bleeding yesterday but none overnight. She also had some nausea this morning that she believes is due to drinking prune juice which helped her have a bowel movement yesterday. She is not feeling any contractions. She is stressed about long-term stay in the hospital but believes her children will be okay. Antepartum ROS: Reports: movement normal, Denies: Loss of fluid, Vaginal bleeding, Contractions Objective Physical Exam GENERAL: Well-nourished, well-developed patient. CARDIOVASCULAR: Tachycardic rate and rhythm without murmurs, gallops, or rubs. RESPIRATORY: Breath sounds equal bilaterally. No accessory muscle use. ABDOMEN/GI: Abdomen soft, non-tender. Fundus: Gravid GENITOURINARY: FHT's: Category: I Baseline: 145 Reactive: yes Variability: moderate Decels: none EXTREMITIES: No cyanosis or edema, non-tender, without signs of DVT. Assessment and Plan Problem List: (1) Placenta previa ICD Codes: O44.00 - Complete placenta previa NOS or without hemorrhage, unspecified trimester Qualifiers: Qualified Codes: O44.03 - Complete placenta previa nos or without hemorrhage , third trimester (2) Vaginal bleeding in ICD Codes: O46.90 - Antepartum hemorrhage, unspecified, unspecified trimester Assessment and Plan Pt is a 27 at 31/6 weeks gestation with placenta previa that was admitted after a bleeding episode. She is s/p IV mag sulfate for tocolysis and neuroprotection (for 24-48 hours) and Betamethasone 12 mg, 2 injections 24 hours apart Impression * Third trimester bleeding secondary to posterior previa with now the "sentinel bleed" at 31-32 weeks gestation * FHT category I, reassuring * Protein S deficiency for which she is on blood thinners of baby aspirin and Lovenox qd * Currently holding aspiring and Lovenox due to acute bleeding episode * Polyhydramnios LGA baby * Previous * contractions * Stable Plan * Remain in the AP service until delivery - goal is 36 weeks gestation * If patient has another large bleeding episode move to delivery by section * monitoring Q4h * Allow time to move around within the hospital in a wheelchair, accompanied by a nurse * Respiratory incentive spirometer * Hematology consult for further management * Hematology has seen the patient and is awaiting records from her cmo & president in [place] * Not sure if patient has an actual protein C deficiency which is decreased in DW Ashley Burnett MD R2 Mar 14, 2018 8:28 am
[2018-03-14] MEDS: SODIUM CHLORIDE 0.9% FLUSH 10 ML FLUSH IV FLUSH SCH ×2 (09:00→13:38)
--- NOTE | 2018-03-14 09:12 | PD.ONC.PN ---
Subjective Subjective Remarks Patient resting in bed. feeling anxious about . denies pain in legs. no difficulty breathing Objective Data Result Diagram: 03/10/18 0419 03/10/18 0419 Administered Medications Medications (Trade) Dose Ordered Sig/Carole Route PRN Reason Start Time Stop Time Status Last Admin Dose Admin Sodium Chloride (NS Flush) 2 ml BID IV FLUSH 03/10/18 09:00 03/13/18 20:02 Ondansetron HCl (Zofran Odt) 4 mg Q6H PRN PO NAUSEA 03/10/18 05:00 03/11/18 08:56 Oxycodone/ Acetaminophen (Percocet 5-325 Mg) 2 tab Q4H PRN PO back pain 6 or greater 03/10/18 11:15 03/11/18 13:55 Lactated Ringer's 1,000 ml @ 100 mls/hr Q10H IV 03/11/18 13:30 03/11/18 13:55 Docusate Sodium (Colace) 100 mg BID PO 03/12/18 09:00 03/13/18 21:19 Objective Remarks GENERAL: Young woman, sitting up in bed in [facility]. SKIN: Warm and dry. HEAD: Normocephalic. EYES: No injection or drainage. NECK: Supple, trachea midline. CARDIOVASCULAR: Regular rate and rhythm RESPIRATORY: Breath sounds equal bilaterally. No accessory muscle use. GASTROINTESTINAL: Abdomen soft, non-tender, nondistended. +gravid uterus. EXTREMITIES: No cyanosis NEUROLOGICAL: awake and alert. normal speech. Assessment/Plan Assessment 27y/o with a history of protein S deficiency who is currently gestational week 31-32 and presents with vaginal bleeding. history of complete previa. --Due to the concern for history of PE and protein S deficiency in the past, her cement tester assistant recently started her on Lovenox and aspirin ~1 month ago. --developed PE after her last , which was approximately 2 years ago--> patient was on anticoagulation for 6 months. was placed on Coumadin previously. --At the time of PE, a hypercoagulable workup was completed which revealed protein S deficiency. The patient subsequently saw a underlay stitcher in [place]. A repeat hypercoagulable workup was completed and according to the patient, she was not found to have any underlying hypercoagulable state including protein S deficiency. --Protein S levels can be physiologically reduced during the . Thus in the post- setting, it is recommended that testing for protein S levels would be deferred until several weeks after delivery. Plan 1. vaginal bleeding in + history of PE: --monitor CBC --agree with SCD's --UPDATE: records from underlay stitcher in [place] reviewed, repeat testing in 2015 showed a protein S deficiency was NOT present, therefore we would NOT recommend any further anticoagulation. Magalis Munoz Mar 14, 2018 09:12 Pineda Grady MD Mar 14, 2018 22:01
[2018-03-14] MEDS: DOCUSATE SODIUM 100 MG CAP PO SCH ×2 (09:43→21:44)
[2018-03-14] MEDS: LACTATED RINGER'S 1000 ML INJ 1,000 ML IV SCH ×2 (11:30→21:30)
[2018-03-14 11:34] LABS: HEMATOCRIT 32.2 % (35.0-46.0); HEMOGLOBIN 10.6 GM/DL (11.6-15.3)
[2018-03-14] MEDS ORDERED: oxyCODONE/ACETAMINOPHEN 5 MG/325 MG TAB PO PRN ×2 (15:45)
[2018-03-15] VITALS (15 sets, daily range): BP systolic 125–143; BP diastolic 59–75; PULSE 92–111; RESP 18–19; TEMP 97.5–98.2
[2018-03-15] MEDS: ONDANSETRON ODT 4 MG TAB PO PRN (06:56)
[2018-03-15] MEDS: LACTATED RINGER'S 1000 ML INJ 1,000 ML IV SCH ×2 (07:30→17:30)
[2018-03-15] MEDS: SODIUM CHLORIDE 0.9% FLUSH 10 ML FLUSH IV FLUSH SCH ×2 (08:58→21:00)
[2018-03-15] MEDS: SIMETHICONE 125 MG CHEWABLE TAB PO SCH ×2 (09:00→17:00)
--- NOTE | 2018-03-15 09:01 | PD.OB.ANTE ---
Subjective Diagnosis: (1) Placenta previa Diagnosis: Principal (2) Vaginal bleeding in Diagnosis: Principal Interval History Patient states that she is not feeling well this morning. She had pelvic pain last night and was given Percocet which she believes made her nauseous causing her to vomit multiple times this morning. Currently she is experiencing stomach upset. She states that the vaginal bleeding has not worsened and she denies contractions. No fever or chills. Objective Vital Signs Vital Signs Date Time Temp Pulse Resp B/P (MAP) Pulse Ox O2 Delivery O2 Flow Rate FiO2 03/15/18 07:40 18 03/15/18 04:14 111 127/75 (92) 03/15/18 01:20 18 03/15/18 01:20 97.8 03/15/18 01:19 92 125/59 (81) 03/15/18 00:14 18 03/14/18 19:29 108 137/65 (89) 03/14/18 19:27 98.0 18 03/14/18 17:14 18 03/14/18 17:14 126 134/75 (94) 03/14/18 17:13 98.8 03/14/18 12:19 17 03/14/18 12:18 98.2 102 131/56 (81) 03/14/18 12:00 98.2 03/14/18 09:00 16 Lab & Micro Results Test 03/14/18 10:40 Hemoglobin 10.6 GM/DL Hematocrit 32.2 % Physical Exam GENERAL: Well-nourished, well-developed patient. CARDIOVASCULAR: Regular rate and rhythm without murmurs, gallops, or rubs. RESPIRATORY: Breath sounds equal bilaterally. No accessory muscle use. ABDOMEN/GI: Abdomen soft, non-tender. Fundus: Gravid GENITOURINARY: Uterine Contractions: None EXTREMITIES: No cyanosis or edema, non-tender, without signs of DVT. Assessment and Plan Problem List: (1) Placenta previa ICD Codes: O44.00 - Complete placenta previa NOS or without hemorrhage, unspecified trimester Qualifiers: Qualified Codes: O44.03 - Complete placenta previa nos or without hemorrhage , third trimester (2) Vaginal bleeding in ICD Codes: O46.90 - Antepartum hemorrhage, unspecified, unspecified trimester Assessment and Plan Pt is a 27 at 32/0 weeks gestation with placenta previa that was admitted after a bleeding episode. She is s/p IV mag sulfate for tocolysis and neuroprotection (for 24-48 hours) and Betamethasone 12 mg, 2 injections 24 hours apart Impression * Third trimester bleeding secondary to posterior previa with now the "sentinel bleed" at 31-32 weeks gestation * FHT category I, reassuring - performed around 1:30 am this morning * Previous * contractions * Stable - no contractions in the last 3 days Plan * Remain in the AP service until delivery - goal is 36 weeks gestation * If patient has another large bleeding episode move to delivery by section * monitoring Q4h * Allow time to move around within the hospital in a wheelchair, accompanied by a nurse * Respiratory incentive spirometer * Hematology consult for further management reviewed and history of PE * Hematology based on records from her speeder tender in [facility], repeat hypercoagulable workup showed absence of a protein S deficiency * No further anticoagulation is recommended * Zofran ODT and Phenergan IM for nausea. Zantac and simethicone for upset stomach. DW Ashley Hilton MD R2 Mar 15, 2018 09:01
[2018-03-15] MEDS: DOCUSATE SODIUM 100 MG CAP PO SCH ×2 (09:12→21:00)
[2018-03-15] MEDS: FAMOTIDINE 20 MG TAB PO SCH ×2 (09:12→21:00)
[2018-03-15] MEDS: PROMETHAZINE INJ 25 MG/ML VIAL IM PRN (12:13)
[2018-03-16] VITALS (9 sets, daily range): BP systolic 109–135; BP diastolic 51–94; PULSE 99–117; RESP 18–20; TEMP 97.6–98.4
[2018-03-16] MEDS: SIMETHICONE 125 MG CHEWABLE TAB PO SCH ×3 (01:00→16:50)
[2018-03-16] MEDS: LACTATED RINGER'S 1000 ML INJ 1,000 ML IV SCH ×2 (03:30→13:30)
[2018-03-16] MEDS: FAMOTIDINE 20 MG TAB PO SCH ×2 (08:20→21:00)
[2018-03-16] MEDS: DOCUSATE SODIUM 100 MG CAP PO SCH ×2 (08:20→21:00)
--- NOTE | 2018-03-16 08:33 | PD.OB.ANTE ---
Subjective Diagnosis: (1) Placenta previa Diagnosis: Principal (2) Vaginal bleeding in Diagnosis: Principal Interval History No acute events overnight. Patient had some nausea and did not feel well yesterday but is feeling much better today with no complaints. Denies any vaginal bleeding, gush of fluid, decreased movement or contractions. Objective Vital Signs Vital Signs Date Time Temp Pulse Resp B/P (MAP) Pulse Ox O2 Delivery O2 Flow Rate FiO2 03/16/18 08:22 97.6 18 03/16/18 08:21 99 109/51 (70) 03/16/18 05:00 98.4 18 03/16/18 04:59 102 135/74 (94) 03/15/18 20:31 98.2 18 03/15/18 20:30 107 143/72 (95) 03/15/18 17:20 103 126/63 (84) 03/15/18 17:19 97.5 03/15/18 16:20 98.2 18 03/15/18 15:00 19 03/15/18 13:43 18 03/15/18 12:00 19 03/15/18 10:00 18 03/15/18 09:50 98 142/68 (92) 03/15/18 09:00 98.2 03/15/18 09:00 19 Physical Exam GENERAL: Well-nourished, well-developed patient. CARDIOVASCULAR: Regular rate and rhythm without murmurs, gallops, or rubs. RESPIRATORY: Breath sounds equal bilaterally. No accessory muscle use. ABDOMEN/GI: Abdomen soft, non-tender. Fundus: Consistent with 32 weeks gestation EXTREMITIES: No cyanosis or edema, non-tender, without signs of DVT. Assessment and Plan Problem List: (1) Placenta previa ICD Codes: O44.00 - Complete placenta previa NOS or without hemorrhage, unspecified trimester Qualifiers: Qualified Codes: O44.03 - Complete placenta previa nos or without hemorrhage , third trimester (2) Vaginal bleeding in ICD Codes: O46.90 - Antepartum hemorrhage, unspecified, unspecified trimester Assessment and Plan Pt is a 27 at 32/1 weeks gestation with placenta previa that was admitted after a bleeding episode. She is s/p IV mag sulfate for tocolysis and neuroprotection (for 24-48 hours) and Betamethasone 12 mg, 2 injections 24 hours apart Impression * Third trimester bleeding secondary to posterior previa with now the "sentinel bleed" at 31-32 weeks gestation * FHT category I, reassuring - performed around 12:30 am this morning * Previous * contractions * Stable - no contractions in the last 4 days Plan * Remain in the AP service until delivery - goal is 36 weeks gestation * If patient has another large bleeding episode move to delivery by section * monitoring Q4h * Allow time to move around within the hospital in a wheelchair, accompanied by a nurse * Respiratory incentive spirometer * Hematology consult for further management reviewed and history of PE * Hematology based on records from her glove cutter in [facility], repeat hypercoagulable workup showed absence of a protein S deficiency * No further anticoagulation is recommended * Zofran ODT and Phenergan IM for nausea. Zantac and simethicone for upset stomach. Earl Duran MD R1 Mar 16, 2018 08:33
[2018-03-16] MEDS: SODIUM CHLORIDE 0.9% FLUSH 10 ML FLUSH IV FLUSH SCH ×2 (08:45→21:00)
[2018-03-16] MEDS ORDERED: LORazepam 0.5 MG TAB PO ONE (11:15)
--- NOTE | 2018-03-16 14:21 | RADRPT ---
EXAM DATE: 03/16/2018 1:13 PM EDT AGE/SEX: 27 years / Female INDICATIONS: . Evaluate for placenta accreta. CLINICAL DATA: This is the patient's initial encounter. Patient reports that signs and symptoms have been present for 4 - 6 days and indicates a pain score of 0/10. MEDICAL/SURGICAL HISTORY: . DVT section. COMPARISON: No prior exams available for comparison. TECHNIQUE: Multiplanar, multisequence images of the abdomen was performed without contrast. FINDINGS: Patient has placenta previa with approximately one third of the placenta covering and open cervical o s. Placenta is bulging into the upper canal with some blood products evident. The upper portion of the placenta does cover the previous scar. I do not see obvious accreta however the myometrium is so thin this would be very difficult to exclud e entirely. Cursory examination of the fetus reveals a near term fetus without spinal dysraphism. The cord is sit ting between head and right lateral wall of the placenta. CONCLUSION: 1. Placenta previa as above with portion of the placenta covering the old scar 2. Placenta is bulging into the osseous the blood products in the endocervical canal. 3. Please see above discussion. Electronically signed by: Luisito Kearns MD 03/16/2018 2:19 PM EDT
[2018-03-17] VITALS (13 sets, daily range): BP systolic 90–146; BP diastolic 46–89; PULSE 103–113; RESP 18–20; TEMP 97.6–99.1
[2018-03-17] MEDS: SIMETHICONE 125 MG CHEWABLE TAB PO SCH ×4 (03:45→16:27)
[2018-03-17] MEDS: FAMOTIDINE 20 MG TAB PO SCH ×3 (03:46→23:08)
[2018-03-17] MEDS: DOCUSATE SODIUM 100 MG CAP PO SCH ×3 (03:46→23:08)
[2018-03-17] MEDS: PROMETHAZINE INJ 25 MG/ML VIAL IM PRN ×3 (04:10→23:44)
--- NOTE | 2018-03-17 07:18 | PD.OB.ANTE ---
Subjective Diagnosis: (1) Placenta previa Diagnosis: Principal (2) Vaginal bleeding in Diagnosis: Principal Interval History No complaints. No bleeding overnight. No contractions. Objective Vital Signs Vital Signs Date Time Temp Pulse Resp B/P (MAP) Pulse Ox O2 Delivery O2 Flow Rate FiO2 03/17/18 04:14 121/89 (100) 03/17/18 04:14 111 03/17/18 04:13 98.4 03/17/18 04:11 20 03/17/18 01:05 20 03/16/18 23:25 98.4 20 03/16/18 23:16 117 110/94 (99) 03/16/18 17:00 98.2 18 03/16/18 16:19 111 129/58 (81) 03/16/18 13:34 19 03/16/18 08:22 97.6 18 03/16/18 08:21 99 109/51 (70) Lab & Micro Results Last Impressions Abdomen MRI 03/16/18 0000 Signed Impressions: CONCLUSION: 1. Placenta previa as above with portion of the placenta covering the old C-se ction scar 2. Placenta is bulging into the osseous the blood products in the endocervical canal. 3. Please see above discussion. Physical Exam GENERAL: Well-nourished, well-developed patient. CARDIOVASCULAR: Regular rate and rhythm without murmurs, gallops, or rubs. RESPIRATORY: Breath sounds equal bilaterally. No accessory muscle use. ABDOMEN/GI: Abdomen soft, non-tender. Fundus: gravid to 32 weeks size GENITOURINARY: Uterine Contractions: none FHT's: NSTs performed overnight Category: I Baseline: 140 Reactive: multiple accels Variability: moderate Decels: none EXTREMITIES: No cyanosis or edema, non-tender, without signs of DVT. Assessment and Plan Problem List: (1) Placenta previa ICD Codes: O44.00 - Complete placenta previa NOS or without hemorrhage, unspecified trimester Qualifiers: Qualified Codes: O44.03 - Complete placenta previa nos or without hemorrhage , third trimester (2) Vaginal bleeding in ICD Codes: O46.90 - Antepartum hemorrhage, unspecified, unspecified trimester Assessment and Plan Pt is a 27 at 32/2 weeks gestation with placenta previa that was admitted after a bleeding episode. She is s/p IV mag sulfate for tocolysis and neuroprotection (for 24-48 hours) and Betamethasone 12 mg, 2 injections 24 hours apart Impression * Third trimester bleeding secondary to posterior previa with now the "sentinel bleed" at 31-32 weeks gestation * FHT category I, reassuring - performed around 11:20 pm last night * Previous * contractions * Stable - no contractions in the last 5 days Plan * Remain in the AP service until delivery - goal is 36 weeks gestation * MRI performed on 03/16 could not rule out placenta accreta * MFM consult on Monday03/21/2018 * If patient has another large bleeding episode, move to delivery by section * monitoring Qshift * Allow time to move around within the hospital in a wheelchair, accompanied by a nurse * Respiratory incentive spirometer * Hematology consult for further management reviewed and history of PE * Hematology based on records from her gaming floor supervisor in [facility], repeat hypercoagulable workup showed absence of a protein S deficiency * No further anticoagulation is recommended * Zofran ODT and Phenergan IM for nausea. Zantac and simethicone for upset stomach. Discussed with Ashley Burnett MD R2 Mar 17, 2018 07:18
[2018-03-17] MEDS: ONDANSETRON ODT 4 MG TAB PO PRN (08:48)
[2018-03-17] MEDS: PRENATAL VITAMIN CHEWABLE TAB CHEW SCH (08:49)
[2018-03-17] MEDS: SODIUM CHLORIDE 0.9% FLUSH 10 ML FLUSH IV FLUSH SCH ×2 (10:02→21:00)
[2018-03-18] VITALS (8 sets, daily range): BP systolic 109–134; BP diastolic 63–73; PULSE 105–111; RESP 15–20; TEMP 97.6–98.1
[2018-03-18] MEDS: SODIUM CHLORIDE 0.9% FLUSH 10 ML FLUSH IV FLUSH SCH ×2 (09:00→21:23)
[2018-03-18] MEDS: FAMOTIDINE 20 MG TAB PO SCH ×2 (09:20→21:22)
[2018-03-18] MEDS: PRENATAL VITAMIN CHEWABLE TAB CHEW SCH (09:20)
[2018-03-18] MEDS: DOCUSATE SODIUM 100 MG CAP PO SCH ×2 (09:20→21:22)
[2018-03-18] MEDS: SIMETHICONE 125 MG CHEWABLE TAB PO SCH ×2 (09:20→17:00)
[2018-03-18] MEDS: PROMETHAZINE INJ 25 MG/ML VIAL IM PRN (09:35)
--- NOTE | 2018-03-18 09:56 | PD.OB.ANTE ---
Subjective Diagnosis: (1) Placenta previa Diagnosis: Principal (2) Vaginal bleeding in Diagnosis: Principal Interval History Patient seen and examined this morning. No acute events overnight. No new complaints today. No bleeding, fluid leakage. Denies any fever/chills, shortness of breath, chest pain, leg pain. Antepartum ROS: Reports: movement normal, Denies: New complaints, Loss of fluid, Vaginal bleeding, Contractions (Alejandro Alan MD R2) Objective Vital Signs Vital Signs Date Time Temp Pulse Resp B/P (MAP) Pulse Ox O2 Delivery O2 Flow Rate FiO2 03/18/18 09:00 98.1 03/18/18 06:00 20 03/18/18 03:00 20 03/17/18 22:57 99.1 03/17/18 22:56 113 146/70 (95) 03/17/18 22:56 20 03/17/18 15:59 98.3 03/17/18 15:57 108 138/83 (101) 03/17/18 15:55 18 03/17/18 11:53 106 90/46 (61) 03/17/18 11:53 97.6 03/17/18 11:52 18 Physical Exam GENERAL: Well-nourished, well-developed patient. CARDIOVASCULAR: Regular rate and rhythm without murmurs, gallops, or rubs. RESPIRATORY: Breath sounds equal bilaterally. No accessory muscle use. ABDOMEN/GI: Abdomen soft, non-tender. Gravid to 32 weeks GENITOURINARY: FHT's: EXTREMITIES: No cyanosis or edema, non-tender, without signs of DVT. (Alejandro Alan MD R2) Assessment and Plan Problem List: (1) Placenta previa ICD Codes: O44.00 - Complete placenta previa NOS or without hemorrhage, unspecified trimester Qualifiers: Qualified Codes: O44.03 - Complete placenta previa nos or without hemorrhage , third trimester (2) Vaginal bleeding in ICD Codes: O46.90 - Antepartum hemorrhage, unspecified, unspecified trimester Assessment and Plan Pt is a 27 at 32/3 weeks gestation with placenta previa that was admitted after a bleeding episode. She is s/p IV mag sulfate for tocolysis and neuroprotection (for 24-48 hours) and Betamethasone 12 mg, 2 injections 24 hours apart Impression * Third trimester bleeding secondary to posterior previa with now the "sentinel bleed" at 31-32 weeks gestation * FHT category I, reassuring * Previous * contractions * Stable - no contractions in the last 5 days Plan * Remain in the AP service until delivery - goal is 36 weeks gestation * MRI performed on 03/16 could not rule out placenta accreta * MFM consult on Monday03/21/2018 * If patient has another large bleeding episode, move to delivery by section * monitoring Qshift * Allow time to move around within the hospital in a wheelchair, accompanied by a nurse * Respiratory incentive spirometer * Hematology consult for further management reviewed and history of PE * Hematology based on records from her pellet post inspector in [facility], repeat hypercoagulable workup showed absence of a protein S deficiency * No further anticoagulation is recommended * Zofran ODT and Phenergan IM for nausea. Zantac and simethicone for upset stomach. Discussed with Dr. Muro (Alejandro Alan MD R2) Assessment and Plan I personally saw and examined patient and participated in all metcalf decision making. Continue routine management of placenta previa, bedrest, monitoring. All of the patient's questions were answered, support offered. [facility] (Sarah Muro MD) Alejandro Alan MD R2 Mar 18, 2018 09:56 Sarah Muro MD Mar 22, 2018 13:29
[2018-03-19] VITALS: RESP 18
--- NOTE | 2018-03-19 07:37 | PD.OB.ANTE ---
Subjective Diagnosis: (1) Placenta previa Diagnosis: Principal (2) Vaginal bleeding in Diagnosis: Principal Interval History Pt is doing well this morning. She denies contractions or vaginal bleeding. She slept well overnight. No fever or chills. She has been eating well but states that she would reduce how much she eats because it causes her stomach upset. Her family has been bringing her lots of food. Antepartum ROS: Denies: Loss of fluid, Vaginal bleeding, Contractions Objective Vital Signs Vital Signs Date Time Temp Pulse Resp B/P (MAP) Pulse Ox O2 Delivery O2 Flow Rate FiO2 03/19/18 00:00 18 03/18/18 23:37 105 134/68 (90) 03/18/18 20:00 97.6 107 15 121/71 (88) 03/18/18 20:00 97.6 03/18/18 16:14 98.0 18 03/18/18 16:14 108 109/73 (85) 03/18/18 09:43 18 03/18/18 09:19 111 125/63 (83) 03/18/18 09:00 98.1 Physical Exam GENERAL: Well-nourished, well-developed patient. CARDIOVASCULAR: Regular rate and rhythm without murmurs, gallops, or rubs. RESPIRATORY: Breath sounds equal bilaterally. No accessory muscle use. ABDOMEN/GI: Abdomen soft, non-tender. Fundus: gravid GENITOURINARY: Uterine Contractions: None FHT's: Category: I Baseline: 150 Reactive: accels present Variability: moderate Decels: none EXTREMITIES: No cyanosis or edema, non-tender, without signs of DVT. Assessment and Plan Problem List: (1) Placenta previa ICD Codes: O44.00 - Complete placenta previa NOS or without hemorrhage, unspecified trimester Qualifiers: Qualified Codes: O44.03 - Complete placenta previa nos or without hemorrhage , third trimester (2) Vaginal bleeding in ICD Codes: O46.90 - Antepartum hemorrhage, unspecified, unspecified trimester Assessment and Plan Pt is a 27 at 32/4 weeks gestation with placenta previa that was admitted after a bleeding episode. She is s/p IV mag sulfate for tocolysis and neuroprotection (for 24-48 hours) and Betamethasone 12 mg, 2 injections 24 hours apart Impression * Third trimester bleeding secondary to posterior previa with now the "sentinel bleed" at 31-32 weeks gestation * FHT category I, reassuring * Previous * contractions * Stable - no contractions in the last 5 days Plan * Remain in the AP service until delivery - goal is 36 weeks gestation * MRI performed on 03/16 could not rule out placenta accreta, but no direct evidence for it * MFM consult on Monday03/21/2018 * If patient has another large bleeding episode, move to delivery by section * monitoring Qshift * Allow time to move around within the hospital in a wheelchair, accompanied by a nurse * CBCs Q3D * Iron transfusion on 03/19/2018 * Type and screen * Anesthesia consult ordered on 03/19/2018 * Respiratory incentive spirometer * Hematology consult for further management reviewed and history of PE * Hematology based on records from her wet end supervisor in [facility], repeat hypercoagulable workup showed absence of a protein S deficiency * No further anticoagulation is recommended * Zofran ODT and Phenergan IM for nausea. Zantac and simethicone for upset stomach. Discussed with Ashley Burnett MD R2 Mar 19, 2018 07:37
[2018-03-19 08:11] VITALS: BP 136/49; PULSE 113
[2018-03-19 08:23] VITALS: RESP 18; TEMP 98.1
[2018-03-19] MEDS: SODIUM CHLORIDE 0.9% FLUSH 10 ML FLUSH IV FLUSH SCH ×2 (09:00→21:37)
[2018-03-19] MEDS: SIMETHICONE 125 MG CHEWABLE TAB PO SCH ×2 (09:00→17:00)
[2018-03-19] MEDS ORDERED: IRON SUCROSE INJ 200 MG in SODIUM CHLORIDE 0.9% INJ 100 ML IV ONE (10:45)
[2018-03-19] MEDS: FAMOTIDINE 20 MG TAB PO SCH ×2 (12:03→21:37)
[2018-03-19] MEDS: PRENATAL VITAMIN CHEWABLE TAB CHEW SCH (12:03)
[2018-03-19] MEDS: HEPARIN SODIUM - SQ 10,000 UNITS/ML VIAL SQ SCH (12:03)
[2018-03-19] MEDS: DOCUSATE SODIUM 100 MG CAP PO SCH ×2 (12:04→21:37)
[2018-03-19 13:30] LABS: HEMATOCRIT 30.9 % (35.0-46.0); HEMOGLOBIN 10.6 GM/DL (11.6-15.3); MEAN CELL VOLUME 80.7 FL (80.0-100.0); MEAN CORPUSCULAR HEMOGLOBIN 27.8 PG (27.0-34.0); MEAN CORPUSCULAR HGB CONC 34.4 % (32.0-36.0); MEAN PLATELET VOLUME 7.4 FL (7.0-11.0); PLATELET COUNT 289 TH/MM3 (150-450); RED BLOOD COUNT 3.83 MIL/MM3 (4.00-5.30); RED CELL DISTRIBUTION WIDTH 15.7 % (11.6-17.2); WHITE BLOOD COUNT 10.7 TH/MM3 (4.0-11.0)
[2018-03-19 20:30] VITALS: TEMP 97.3
[2018-03-19 20:31] VITALS: BP 141/65; PULSE 111
[2018-03-20] VITALS (9 sets, daily range): BP systolic 123–146; BP diastolic 64–129; PULSE 90–117; RESP 18–20; TEMP 96.8–98.5
[2018-03-20] MEDS: HEPARIN SODIUM - SQ 10,000 UNITS/ML VIAL SQ SCH ×2 (00:09→13:55)
[2018-03-20] MEDS: SIMETHICONE 125 MG CHEWABLE TAB PO SCH ×3 (01:00→21:16)
--- NOTE | 2018-03-20 08:21 | PD.OB.ANTE ---
Subjective Diagnosis: (1) Placenta previa Diagnosis: Principal (2) Vaginal bleeding in Diagnosis: Principal Interval History No acute events overnight. Patient tolerated iron infusion well and was restarted on heparin yesterday with no complications or further bleeding. Objective Vital Signs Vital Signs Date Time Temp Pulse Resp B/P (MAP) Pulse Ox O2 Delivery O2 Flow Rate FiO2 03/20/18 02:00 18 03/20/18 01:24 98.1 03/20/18 01:23 112 126/67 (86) 03/20/18 01:21 90 146/129 (135) 03/19/18 20:31 111 141/65 (90) 03/19/18 20:30 97.3 03/19/18 08:23 98.1 18 Lab & Micro Results Test 03/19/18 13:12 White Blood Count 10.7 TH/MM3 Red Blood Count 3.83 MIL/MM3 Hemoglobin 10.6 GM/DL Hematocrit 30.9 % Mean Corpuscular Volume 80.7 FL Mean Corpuscular Hemoglobin 27.8 PG Mean Corpuscular Hemoglobin Concent 34.4 % Red Cell Distribution Width 15.7 % Platelet Count 289 TH/MM3 Mean Platelet Volume 7.4 FL Physical Exam GENERAL: Well-nourished, well-developed patient. CARDIOVASCULAR: Regular rate and rhythm without murmurs, gallops, or rubs. RESPIRATORY: Breath sounds equal bilaterally. No accessory muscle use. ABDOMEN/GI: Abdomen soft, non-tender. GENITOURINARY: External Genitalia Uterine Contractions: No contractions on the monitor FHT's: Category: 1 Baseline: 140 Reactive: Yes Variability: Moderate Decels: None EXTREMITIES: No cyanosis or edema, non-tender, without signs of DVT. Assessment and Plan Problem List: (1) Placenta previa ICD Codes: O44.00 - Complete placenta previa NOS or without hemorrhage, unspecified trimester Qualifiers: Qualified Codes: O44.03 - Complete placenta previa nos or without hemorrhage , third trimester (2) Vaginal bleeding in ICD Codes: O46.90 - Antepartum hemorrhage, unspecified, unspecified trimester Assessment and Plan Pt is a 27 at 32/5 weeks gestation with placenta previa that was admitted after a bleeding episode. She is s/p IV mag sulfate for tocolysis and neuroprotection (for 24-48 hours) and Betamethasone 12 mg, 2 injections 24 hours apart Impression * Third trimester bleeding secondary to posterior previa with now the "sentinel bleed" at 31-32 weeks gestation * FHT category I, reassuring * Previous * contractions * Stable - no contractions in the last 5 days Plan * Remain in the AP service until delivery - goal is 36 weeks gestation * MRI performed on 03/16 could not rule out placenta accreta, but no direct evidence for it * MFM consult on Monday03/21/2018 * If patient has another large bleeding episode, move to delivery by section * monitoring Qshift * Allow time to move around within the hospital in a wheelchair, accompanied by a nurse * CBCs Q3D * Iron transfusion on 03/19/2018 * Type and screen * Anesthesia consult ordered on 03/19/2018 * Respiratory incentive spirometer * Hematology consult for further management reviewed and history of PE * Hematology based on records from her shearer helper in [facility], repeat hypercoagulable workup showed absence of a protein S deficiency * As patient had a VT following the last , will resume heparin on and monitor closely for signs of bleeding * Zofran ODT and Phenergan IM for nausea. Zantac and simethicone for upset stomach. Earl Duran MD R1 Mar 20, 2018 08:21
[2018-03-20] MEDS: SODIUM CHLORIDE 0.9% FLUSH 10 ML FLUSH IV FLUSH SCH ×2 (09:00→22:08)
--- NOTE | 2018-03-20 09:49 | HHI.PR ---
DISTRIBUTION OPERATIONS MANAGER Note Note This note was previously placed in another patient's chart in error. Ms Moreno was seen yesterday which is when this note should have been placed in her chart. I was called to the patient's room and she was considering leaving AGAINST MEDICAL ADVICE. I discussed with her her diagnosis of placenta previa with bleeding in detail and the possible complications of hemorrhage particularly if it took place outside the hospital. I also reviewed her ultrasound images and her MRI images. Ultrasound shows a posterior placenta previa with the anterior portion of the previa under her scar, no thickening around the scar and I see no increased vascularity. Additionally there is a clean delineation between the anterior lower segment of the uterus and the bladder. The MRI was reviewed with the radiologist who cannot see any evidence of a accreta at this time but cannot rule it out completely. I discussed in detail with the patient the necessity for a section with the possibilities of hemorrhage necessitating blood transfusion or hysterectomy. We also discussed the small possibilities of a placenta accreta given the placenta under the section scar. Patient will also be given an iron infusion today to increase her H&H. She also has a history of a DVT in the past and with her obesity, , and strict bedrest she is at risk for another DVT. She is present presently on heparin prophylaxis instead of Lovenox which will be discontinued prior to her section. At this point she has decided that she would stay in the hospital but has a great amount of anxiety due to childcare. Ultrasound was ordered with perinatology consultation when they are here later this week. Janeth Chávez MD Mar 20, 2018 09:49
[2018-03-20] MEDS: DOCUSATE SODIUM 100 MG CAP PO SCH ×2 (10:19→21:16)
[2018-03-20] MEDS: PRENATAL VITAMIN CHEWABLE TAB CHEW SCH (10:19)
[2018-03-20] MEDS: FAMOTIDINE 20 MG TAB PO SCH ×2 (10:19→21:16)
[2018-03-21] VITALS (15 sets, daily range): BP systolic 129–146; BP diastolic 55–75; PULSE 103–113; RESP 17–19; TEMP 98–98.5
[2018-03-21] MEDS: HEPARIN SODIUM - SQ 10,000 UNITS/ML VIAL SQ SCH ×2 (00:12→12:10)
--- NOTE | 2018-03-21 06:57 | PD.OB.ANTE ---
Subjective Diagnosis: (1) Placenta previa Diagnosis: Principal (2) Vaginal bleeding in Diagnosis: Principal Interval History Patient is now 32 weeks 6 days with known previa no bleeding in the last 24 hours of significance Objective Vital Signs Vital Signs Date Time Temp Pulse Resp B/P (MAP) Pulse Ox O2 Delivery O2 Flow Rate FiO2 03/21/18 00:45 98.0 113 18 146/75 (98) 03/21/18 00:00 18 03/20/18 20:00 18 03/20/18 19:40 112 131/72 (91) 03/20/18 19:38 98.5 03/20/18 10:28 96.8 117 123/64 (83) 03/20/18 10:21 20 Physical Exam GENERAL: Well-nourished, well-developed patient. CARDIOVASCULAR: Regular rate and rhythm without murmurs, gallops, or rubs. RESPIRATORY: Breath sounds equal bilaterally. No accessory muscle use. ABDOMEN/GI: Abdomen soft, non-tender. Fundus: [-] GENITOURINARY: External Genitalia: intact and normal in appearance FHT's: Category: [1-] Baseline: [-133] Reactive: [R-] Variability: [mod-] Decels: [-0] EXTREMITIES: No cyanosis or edema, non-tender, without signs of DVT. Assessment and Plan Problem List: (1) Placenta previa ICD Codes: O44.00 - Complete placenta previa NOS or without hemorrhage, unspecified trimester Qualifiers: Qualified Codes: O44.03 - Complete placenta previa nos or without hemorrhage , third trimester (2) Vaginal bleeding in ICD Codes: O46.90 - Antepartum hemorrhage, unspecified, unspecified trimester Assessment and Plan Pt is a 27 at 32/5 weeks gestation with placenta previa that was admitted after a bleeding episode. She is s/p IV mag sulfate for tocolysis and neuroprotection (for 24-48 hours) and Betamethasone 12 mg, 2 injections 24 hours apart Impression * Third trimester bleeding secondary to posterior previa with now the "sentinel bleed" at 31-32 weeks gestation * FHT category I, reassuring * Previous * contractions * Stable - no contractions in the last 5 days Plan * Remain in the AP service until delivery - goal is 36 weeks gestation * MRI performed on 03/16 could not rule out placenta accreta, but no direct evidence for it * MFM consult on Monday03/21/2018 * If patient has another large bleeding episode, move to delivery by section * monitoring Qshift * Allow time to move around within the hospital in a wheelchair, accompanied by a nurse * CBCs Q3D * Iron transfusion on 03/19/2018 * Type and screen * Anesthesia consult ordered on 03/19/2018 * Respiratory incentive spirometer * Hematology consult for further management reviewed and history of PE * Hematology based on records from her quality assurance calibrator in [facility], repeat hypercoagulable workup showed absence of a protein S deficiency * As patient had a VT following the last , will resume heparin on and monitor closely for signs of bleeding * Zofran ODT and Phenergan IM for nausea. Zantac and simethicone for upset stomach. Santhosh So II, MD Mar 21, 2018 06:57
[2018-03-21] MEDS: ONDANSETRON ODT 4 MG TAB PO PRN (07:56)
[2018-03-21] MEDS: PRENATAL VITAMIN CHEWABLE TAB CHEW SCH (08:45)
[2018-03-21] MEDS: FAMOTIDINE 20 MG TAB PO SCH ×2 (08:45→22:08)
[2018-03-21] MEDS: DOCUSATE SODIUM 100 MG CAP PO SCH ×2 (08:46→22:09)
[2018-03-21] MEDS: SIMETHICONE 125 MG CHEWABLE TAB PO SCH ×3 (08:46→17:00)
[2018-03-21] MEDS: SODIUM CHLORIDE 0.9% FLUSH 10 ML FLUSH IV FLUSH SCH ×2 (09:05→21:00)
[2018-03-21] MEDS ORDERED: Heparin Inj SQ ×2 (10:51→11:16)
--- NOTE | 2018-03-21 10:52 | HHI.DCPOC ---
Discharge Care Plan Diagnosis: (1) Vaginal bleeding in (2) Placenta previa Report Symptoms to Your Doctor -Temperature above 100.5 degrees -Redness, of incision or excessive or foul smelling drainage -Unusual pain or calf pain -Increased vaginal bleeding -Painful or difficulty urinating -Feelings of extreme sadness or anxiety after 2 weeks Goals to Promote Your Health * To prevent worsening of your condition and complications * To maintain your health at the optimal level Directions to Meet Your Goals Take your medications as prescribed Follow your dietary instruction Follow activity as directed Ensure plenty of rest for recovery Drink fluids for hydration Keep your appointments as scheduled Take your immunizations and boosters as scheduled If your symptoms worsen call your PCP, if no PCP go to Urgent Care Center or Emergency Room Smoking is Dangerous to Your Health. Avoid second hand smoke Call the 24-hour crisis hotline for domestic abuse at Earl Duran MD R1 Mar 21, 2018 10:52
[2018-03-21] MEDS ORDERED: HEPAR10KP IV (11:16)
[2018-03-22] MEDS: HEPARIN SODIUM - SQ 10,000 UNITS/ML VIAL SQ SCH (00:08)
[2018-03-22] MEDS: SIMETHICONE 125 MG CHEWABLE TAB PO SCH ×2 (00:09→08:02)
[2018-03-22 00:16] VITALS: BP 130/45; PULSE 101
[2018-03-22 00:17] VITALS: RESP 18; TEMP 98
[2018-03-22 08:00] VITALS: RESP 19; TEMP 98.1
[2018-03-22] MEDS: PRENATAL VITAMIN CHEWABLE TAB CHEW SCH (08:05)
[2018-03-22] MEDS: DOCUSATE SODIUM 100 MG CAP PO SCH (08:05)
[2018-03-22] MEDS: FAMOTIDINE 20 MG TAB PO SCH (08:05)
[2018-03-22 08:06] VITALS: BP 116/49; PULSE 105
[2018-03-22] MEDS ORDERED: DOCU1CAP39 PO (08:40)
[2018-03-22] MEDS ORDERED: FAMO20TA2 PO (08:40)
--- NOTE | 2018-03-22 08:54 | PD.OB.ANTE ---
Subjective Diagnosis: (1) Placenta previa Diagnosis: Principal (2) Vaginal bleeding in Diagnosis: Principal Interval History No concerns overnight. Patient denies any vaginal bleeding. Denies any chest pain, shortness of breath, difficulty urinating or having bowel movements. Objective Vital Signs Vital Signs Date Time Temp Pulse Resp B/P (MAP) Pulse Ox O2 Delivery O2 Flow Rate FiO2 03/22/18 08:06 105 116/49 (71) 03/22/18 08:00 98.1 19 03/22/18 00:17 98.0 18 03/22/18 00:16 101 130/45 (73) 03/21/18 23:00 98.1 18 03/21/18 21:52 98.3 106 18 129/62 (84) 03/21/18 20:34 98.1 18 03/21/18 20:33 103 132/55 (80) 03/21/18 17:00 98.5 19 03/21/18 16:46 103 140/75 (96) 03/21/18 16:00 18 03/21/18 15:00 17 03/21/18 13:47 18 03/21/18 12:46 19 03/21/18 10:00 98.2 Physical Exam GENERAL: Well-nourished, well-developed patient. CARDIOVASCULAR: Regular rate and rhythm without murmurs, gallops, or rubs. RESPIRATORY: Breath sounds equal bilaterally. No accessory muscle use. ABDOMEN/GI: Abdomen soft, non-tender. Fundus: [-] GENITOURINARY: External Genitalia: intact and normal in appearance Cervix: [-] Dilatation: [-] Effacement: [-] Station: [-] Presentation: [-] Membranes: [-] Uterine Contractions: [-] FHT's: Category: [-] Baseline: [-] Reactive: [-] Variability: [-] Decels: [-] EXTREMITIES: No cyanosis or edema, non-tender, without signs of DVT. Assessment and Plan Problem List: (1) Placenta previa ICD Codes: O44.00 - Complete placenta previa NOS or without hemorrhage, unspecified trimester Qualifiers: Qualified Codes: O44.03 - Complete placenta previa nos or without hemorrhage , third trimester (2) Vaginal bleeding in ICD Codes: O46.90 - Antepartum hemorrhage, unspecified, unspecified trimester Assessment and Plan Pt is a 27 at 33/0 weeks gestation with placenta previa that was admitted after a bleeding episode. She is s/p IV mag sulfate for tocolysis and neuroprotection (for 24-48 hours) and Betamethasone 12 mg, 2 injections 24 hours apart Impression * Third trimester bleeding secondary to posterior previa with now the "sentinel bleed" at 31-32 weeks gestation * FHT category I, reassuring * Previous * contractions * Stable - no contractions in the last week Plan * Will plan for discharge today and return for admission on 04/17 for scheduled C -section on 04/18 at 36/6 weeks gestation * MRI performed on 03/16 could not rule out placenta accreta, but no direct evidence for it * MFM consult on Wednesday 03/21 -no signs of accreta and okay with DC on heparin * Patient instructed to return if she has any bright red vaginal bleeding or heavy bleeding * monitoring Qshift * Allow time to move around within the hospital in a wheelchair, accompanied by a nurse * Anesthesia consult on 03/19 * Respiratory incentive spirometer * Hematology consult for further management reviewed and history of PE * Hematology based on records from her printer technician in [facility], repeat hypercoagulable workup showed absence of a protein S deficiency * As patient had a VT following the last , will resume heparin on and monitor closely for signs of bleeding * Zofran ODT and Phenergan IM for nausea. Zantac and simethicone for upset stomach. Earl Duran MD R1 Mar 22, 2018 08:54
--- NOTE | 2018-03-22 08:55 | HHI.DS ---
Discharge Summary Admission Date Mar 10, 2018 at 04:48 Discharge Date: Mar 22, 2018 Admitting Diagnosis Placenta previa Brief History Admission HPI: 27-year-old black female at 31--32 weeks a patient of care for women presents complaining of vaginal bleeding with a known complete previa, this is the first significant bleeding she has had with this problem she had some spotting very minimal few weeks back and tonight is woke up in a pool of blood. She is having little to no pain however she is britni every 3-4 minutes, heart rate tracing is reactive. 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 Also this is noted to have polyhydramnios and an LGA baby on a recent OB diagnostic ultrasound done 3 days ago CBC/BMP: 03/19/18 1312 Significant Findings Laboratory Tests Test 03/19/18 13:12 Red Blood Count 3.83 MIL/MM3 (4.00-5.30) Hemoglobin 10.6 GM/DL (11.6-15.3) Hematocrit 30.9 % (35.0-46.0) PE at Discharge GENERAL: Well-nourished, well-developed patient. CARDIOVASCULAR: Regular rate and rhythm without murmurs, gallops, or rubs. RESPIRATORY: Breath sounds equal bilaterally. No accessory muscle use. ABDOMEN/GI: Abdomen soft, non-tender. Fundus: [-] GENITOURINARY: External Genitalia: intact and normal in appearance FHT's: Category: [1-] Baseline: [-133] Reactive: [R-] Variability: [mod-] Decels: [-0] EXTREMITIES: No cyanosis or edema, non-tender, without signs of DVT. Hospital Course After admission, patient was treated with IV magnesium sulfate for tocolysis and neuro protection as well as betamethasone injections 2. Patient was routinely placed on FHT and there were no consistent contractions in the tracing was consistently category 1 and reassuring. An MRI on 03/16 cannot rule out placenta accreta and patient had multiple ultrasounds with OB diagnostics and was seen by M. Hematology was also consulted as patient had a history of DVTs and had been on Lovenox injections as an outpatient. Those injections were initially stopped and after patient had had no bleeding for some time, MFM recommended starting patient on heparin injections. Patient continued to have no bleeding for several days after these injections were initiated. A repeat ultrasound and MFM consult on 03/21 showed no signs of accreta and MFM recommended a safe discharge on heparin injections with close follow-up. Plan will be for scheduled at 37 weeks gestation and in the meantime will have weekly visits with her OB physician as well as biweekly OB ultrasounds with OB diagnostics. Patient was educated that she should remain mainly at bed rest, no intercourse, no heavy lifting or overexertion. Patient was instructed to return if she has any significant bright red bleeding or bleeding at the level of the period or more. Patient expressed understanding and felt safe for discharge. Pt Condition on Discharge: Good Discharge Disposition: Discharge Home Discharge Instructions DIET: Follow Instructions for: As Tolerated, No Restrictions Activities you can perform: Pelvic Rest, Continue Bedrest Follow up Referrals: [facility] - 2-3 Days with Gabriel Santiago MD New Medications: Heparin Inj (Heparin Inj) 10,000 Units/10 Ml Inj 7500 UNITS IV BID, #1 VIAL 3 Refills Docusate Sodium (Dok) 100 Mg Cap 100 MG PO BID, #60 CAP Famotidine (Famotidine) 20 Mg Tab 20 MG PO Q12HR, #60 TAB Continued Medications: Ibuprofen (Ibuprofen) 600 Mg Tab 600 MG PO Q8HR PRN for PAIN, #10 TAB 0 Refills Phentermine (Lomaira) 8 Mg Tab 37.5 MG PO DAILY for Weight Management, #90 TAB 0 Refills Prochlorperazine Maleate (Prochlorperazine Maleate) 10 Mg Tab 10 MG PO Q6H PRN for NAUSEA OR VOMITING, #30 TAB 0 Refills Discontinued Medications: Nitrofurantoin Monohydrate Macrocrystals (Macrobid) 100 Mg Cap 100 MG PO BID for Infection for 7 Days, #14 CAP 0 Refills Oseltamivir (Tamiflu) 75 Mg Cap 75 MG PO BID for Mgmt Viral Infection for 5 Days, #10 CAP 0 Refills Earl Duran MD R1 Mar 22, 2018 08:55
[2018-03-22] MEDS ORDERED: HEPAR10KP IV (16:10)
[2018-03-22] MEDS ORDERED: ENOX40P SQ (17:08)
== END 2018-03-22 09:45 | disposition home or self-care (01) | DRG 782 ==
LOC: HOBED 04:15 → H2EA 04:48
PROVIDERS: ADMIT Obstetrics & Gynecology Maternal & Fetal Medicine; ATTEND Obstetrics & Gynecology Maternal & Fetal Medicine
DX: O44.13 Complete placenta previa with hemorrhage, third trimester (principal); D68.59 Other primary thrombophilia; Z68.43 Body mass index [BMI] 50.0-59.9, adult; O99.113 Other diseases of the blood and blood-forming organs and certain disorders involving the immune mechanism complicating pregnancy, third trimester; E66.01 Morbid (severe) obesity due to excess calories; Z3A.31 31 weeks gestation of pregnancy; O40.3XX0 Polyhydramnios, third trimester, not applicable or unspecified; O99.213 Obesity complicating pregnancy, third trimester; O36.63X0 Maternal care for excessive fetal growth, third trimester, not applicable or unspecified; Z88.1 Allergy status to other antibiotic agents; Z88.0 Allergy status to penicillin; Z79.82 Long term (current) use of aspirin; Z79.899 Other long term (current) drug therapy; Z86.718 Personal history of other venous thrombosis and embolism
CPT/HCPCS: 74181; 76817; 76819; 80053; 80307; 81001; 83036; 85014; 85018; 85025; 85027; 85610; 85730; 86850; 86900; 86901; 94150; 99283; G0481; J0702; J1644; J1756; J2550; J3370; J3475; J7050; J7120

== ENCOUNTER 2018-03-25 14:53 | Inpatient (IN) | payer MEDICAID ==
[2018-03-25] VITALS (21 sets, daily range): BP systolic 102–140; BP diastolic 51–66; PULSE 40–139; RESP 12–22; TEMP 98–99.8; O2SAT 99–100
[~2018-03-25 14:53] MED LIST changes: +DEXAMETHASONE SOD PHOS 4 MG/ML VIAL IV ONE; +DOCU1CAP39 PO; +ENOX40P SQ; +FAMO20TA2 PO; +HEPAR10KP IV; +LACTATED RINGER'S 1000 ML INJ 1,000 ML IV ONE; -MACR100C2 PO; +ONDANSETRON HCL 4 MG/2 ML VIAL IV ONE; -OSEL75 PO; +OXYTOCIN 10 UNIT/ML AMP IV ONE; +PHENYLEPH/NS 1000 MCG/10 ML SYR IV ONE; +PROPOFOL 200 MG/20 ML AMP IV ONE; +ePHEDrine/NS 25 MG/5 ML SYRINGE IV ONE
[2018-03-25] MEDS ORDERED: CITRIC ACID-SODIUM CITRATE LIQ 30 ML UDC ONE (15:29)
[2018-03-25] MEDS ORDERED: LACTATED RINGER'S 1000 ML INJ 1,000 ML IV ONE (15:34)
[2018-03-25 15:45] LABS: AUTOMATED NEUTROPHIL # 9.6 TH/MM3 (1.8-7.7); BASOPHIL % 0.3 % (0.0-2.0); EOSINOPHIL % 0.4 % (0.0-4.0); HEMATOCRIT 34.7 % (35.0-46.0); HEMOGLOBIN 11.5 GM/DL (11.6-15.3); LYMPH % 5.6 % (9.0-44.0); LYMPHOCYTE # 0.6 TH/MM3 (1.0-4.8); MEAN CELL VOLUME 80.7 FL (80.0-100.0); MEAN CORPUSCULAR HEMOGLOBIN 26.7 PG (27.0-34.0); MEAN CORPUSCULAR HGB CONC 33.1 % (32.0-36.0); MEAN PLATELET VOLUME 7.7 FL (7.0-11.0); MONO % 4.6 % (0.0-8.0); MONOCYTE # 0.5 TH/MM3 (0-0.9); NEUT % 89.1 % (16.0-70.0); PLATELET COUNT 316 TH/MM3 (150-450); RED CELL DISTRIBUTION WIDTH 15.8 % (11.6-17.2); WHITE BLOOD COUNT 10.8 TH/MM3 (4.0-11.0)
[2018-03-25] MEDS ORDERED: LACTATED RINGER'S 1000 ML INJ 1,000 ML IV SCH ×3 (16:04→22:22)
[2018-03-25] MEDS ORDERED: EPIDURAL-DIPHENHYDRAMINE HCL 50 MG CAP PO PRN ×2 (16:15)
[2018-03-25] MEDS ORDERED: EPIDURAL-NALOXONE HCL 0.4 MG/ML AMP IV PUSH PRN ×2 (16:15)
[2018-03-25] MEDS ORDERED: EPIDURAL-NO SYSTEMIC NARCOTICS PRN ×2 (16:15)
[2018-03-25] MEDS ORDERED: EPIDURAL-DO NOT ADMINISTER ANTICOAGULANTS PRN ×2 (16:15)
[2018-03-25] MEDS ORDERED: EPIDURAL-DIPHENHYDRAMINE HCL 50 MG/ML VIAL IV PUSH PRN ×2 (16:15)
[2018-03-25] MEDS ORDERED: CLINDAMYCIN 600 MG/NS PREMIX 50 ML IV SCH ×2 (16:45→22:00)
[2018-03-25] MEDS ORDERED: CITRIC ACID-SODIUM CITRATE LIQ 30 ML UDC PO SCH (17:15)
[2018-03-25] MEDS ORDERED: KETOROLAC TROMETHAMINE 60 MG/2 ML (IM) VIAL IM PRN ×2 (17:30→23:00)
[2018-03-25] MEDS ORDERED: ONDANSETRON ODT 4 MG TAB PO PRN (17:30)
[2018-03-25] MEDS ORDERED: ACETAMINOPHEN 1000 MG/100 ML 100 ML IV ONE ×2 (17:30→18:32)
[2018-03-25] MEDS ORDERED: SODIUM CHLORIDE 0.9% FLUSH 10 ML FLUSH IV FLUSH PRN (17:30)
[2018-03-25] MEDS ORDERED: IBUPROFEN 600 MG TAB PO PRN (17:30)
[2018-03-25] MEDS ORDERED: SIMETHICONE 80 MG CHEWABLE TAB PO PRN (17:30)
[2018-03-25] MEDS ORDERED: oxyCODONE/ACETAMINOPHEN 5 MG/325 MG TAB PO PRN (17:30)
[2018-03-25] MEDS ORDERED: OXYTOCIN 30 UNITS-500ML PREMIX 500 ML IV ONE ×2 (17:30)
[2018-03-25] MEDS ORDERED: OXYTOCIN 10 UNIT/ML AMP XX ONE (17:30)
[2018-03-25] MEDS ORDERED: OXYTOCIN 30 UNITS-500ML PREMIX 500 ML ONE (18:29)
--- NOTE | 2018-03-25 18:34 | HHI.HP ---
History & Physical H&P HPI Chief Complaint vaginal bleeding Date Seen: Mar 25, 2018 Time Seen: 15:10 Travel History International Travel<30 Days: No Contact w/Intl Traveler<30Days: No Known Affected Area: No History of Present Illness HPI 27 yo presents at 33 3/7 wks c/o vaginal bleeding this am while taking a bath. pt with a known hx of placenta previa she was discharged on . [facility]. pt has had steroids and magnesium. pt also has hx of protein s deficiency. states she hasn't had heparin since . +FM, denies LOF or contractions. History (Limited) History Past Medical History Narrative Medical protein s deficiency DVT Obstetric History Obstetric History X 2 X 1, complicated by wound infection and DVT post op Past Surgical History Narrative Surgical Family History Family History: Negative Social History Alcohol Use: No Tobacco Use: No Substance Abuse: No Allergies-Medications Allergies-Medications (Allergen,Severity, Reaction): Coded Allergies: amoxicillin (Verified Allergy, Severe, Hives, 11/09/17) Penicillins (Verified Allergy, Unknown, Hives, 11/09/17) Home Meds Active Scripts Enoxaparin Inj (Lovenox Inj) 40 Mg/0.4 Ml Syr, 40 MG SQ DAILY for Blood Clot Prevention, #30 SYRINGE 0 Refills Prov:Earl Duran MD R1 03/22/18 Heparin Inj (Heparin Inj) 10,000 Units/10 Ml Inj, 7500 UNITS IV BID, #1 VIAL 3 Refills Prov:Earl Duran MD R1 03/22/18 Docusate Sodium (Dok) 100 Mg Cap, 100 MG PO BID, #60 CAP Prov:Earl Duran MD R1 03/22/18 Famotidine (Famotidine) 20 Mg Tab, 20 MG PO Q12HR, #60 TAB Prov:Earl Duran MD R1 03/22/18 Prochlorperazine Maleate (Prochlorperazine Maleate) 10 Mg Tab, 10 MG PO Q6H Y for NAUSEA OR VOMITING, #30 TAB 0 Refills Prov:Barry Donovan MD 11/10/17 Ibuprofen (Ibuprofen) 600 Mg Tab, 600 MG PO Q8HR Y for PAIN, #10 TAB 0 Refills Prov:Kathleen Dominguez ALCOHOL AND DRUG COUNSELOR 07/10/17 Reported Medications Phentermine (Lomaira) 8 Mg Tab, 37.5 MG PO DAILY for Weight Management, #90 TAB 0 Refills 04/07/17 Discontinued Scripts [Heparin Inj] 26605 UNITS/ML INJ No Conflict Check, 7500 UNITS SQ Q12H Prov:Earl Duran MD R1 03/21/18 Nitrofurantoin Monohydrate Macrocrystals (Macrobid) 100 Mg Cap, 100 MG PO BID for Infection for 7 Days, #14 CAP 0 Refills Prov:Dallin Martin MD 11/10/17 Oseltamivir (Tamiflu) 75 Mg Cap, 75 MG PO BID for Mgmt Viral Infection for 5 Days, #10 CAP 0 Refills Prov:Dallin Martin MD 11/10/17 ROS Review of Systems Except as stated in HPI: all other systems reviewed are Neg Physical Exam Physical Exam Vital Signs Date Time Temp Pulse Resp B/P (MAP) Pulse Ox O2 Delivery O2 Flow Rate FiO2 03/25/18 17:58 118 20 100 03/25/18 17:45 120 22 102/51 (68) 99 03/25/18 17:30 99.8 99 03/25/18 17:30 111 20 110/53 (72) 03/25/18 16:05 137 03/25/18 16:02 138 137/63 (87) 03/25/18 16:00 100 03/25/18 16:00 133 03/25/18 15:55 136 100 03/25/18 15:55 135 03/25/18 15:50 139 03/25/18 15:50 139 100 03/25/18 15:45 134 100 03/25/18 15:45 136 03/25/18 15:40 135 03/25/18 15:40 136 03/25/18 15:39 135 122/64 (83) 03/25/18 15:35 139 03/25/18 15:35 137 03/25/18 15:30 40 03/25/18 15:30 133 Narrative GENERAL: Well-nourished, well-developed patient. SKIN: Warm and dry. HEAD: Normocephalic and atraumatic. EYES: No scleral icterus. No injection or drainage. ENT: No nasal drainage noted. Mucous membranes pink. Airway patent. NECK: Supple, trachea midline. No JVD. CARDIOVASCULAR: Regular rate and rhythm without murmurs, gallops, or rubs. RESPIRATORY: Breath sounds equal bilaterally. No accessory muscle use. BREASTS: Bilateral exam showed no masses , no retractions, no nipple discharge. ABDOMEN/GI: Abdomen soft, non-tender, bowel sounds present, no rebound, no guarding Gravid GENITOURINARY: External Genitalia: intact and normal in appearance SSE: + serosanguineous fluid Membranes: [ruptured] Uterine Contractions: [-] irregular FHT's: Category: [-] 2 Baseline: [-] 170s-180s Reactive: [-] yes Variability: [-] mod Decels: [-] EXTREMITIES: No cyanosis or edema. BACK: Nontender without obvious deformity. No CVA tenderness. NEUROLOGICAL: Awake and alert. Motor and sensory grossly within normal limits. Five out of 5 muscle strength in all muscle groups. Normal speech. Data Data Data Vital Signs Reviewed: Yes Orders Orders Citric Acid-Sodium Citrate Liq (Bicitra (03/25/18 15:29) Ob (2e) Additional Admit Info (03/25/18 15:30) Admit To Inpatient (03/25/18 ) Code Status (03/25/18 15:34) Vital Signs (Adult) .ON ADMISSION (03/25/18 15:34) Activity Oob Ad Gricelda (03/25/18 15:34) Heart (03/25/18 15:34) Urinary Catheter Management MARIE.Q8H (03/25/18 15:34) ^ Preps (03/25/18 15:34) Scd / Lukas / Foot Pump MARIE.QSHIFT (03/25/18 15:34) ^ Ultrasound For Locatio (03/25/18 15:34) Lactated Ringer's 1000 Ml Inj (Lr 1000 M (03/25/18 15:34) Lactated Ringer's 1000 Ml Inj (Lr 1000 M (03/25/18 16:04) Citric Acid-Sodium Citrate Liq (Bicitra (03/25/18 17:15) Type And Screen (03/25/18 15:34) Complete Blood Count With Diff (03/25/18 15:34) Urinalysis - C+S If Indicated (03/25/18 15:34) Drug Screen, Random Urine (03/25/18 15:34) Clindamycin 600 Mg/Ns Premix (Cleocin 60 (03/25/18 16:45) Inpatient Certification (03/25/18 ) Red Blood Cells (Rbc) (03/25/18 15:34) Lactated Ringer's 1000 Ml Inj (Lr 1000 M (03/25/18 17:19) Arterial Blood Gas (Abg) (03/25/18 ) Specimen To Be Collected PRN (03/25/18 17:22) Oxytocin Inj (Pitocin Inj) (03/25/18 17:30) Oxytocin 30 Units-500ml Premix (Pitocin (03/25/18 17:30) Vital Signs (Adult) Q4HX24,Q12H (03/25/18 17:22) Activity Bed Rest (03/25/18 17:22) ^ Discontinue (03/26/18 17:22) Remove Dressing (03/26/18 17:22) ^ Binder (03/25/18 ) ^ Rhogam (03/25/18 17:22) Diet Regular Basic (03/25/18 Dinner) Lactated Ringer's 1000 Ml Inj (Lr 1000 M (03/25/18 22:22) Oxytocin 30 Units-500ml Premix (Pitocin (03/25/18 17:30) Oxytocin 30 Units-500ml Premix (Pitocin (03/25/18 22:30) Sodium Chloride 0.9% Flush (Ns Flush) (03/25/18 21:00) Sodium Chloride 0.9% Flush (Ns Flush) (03/25/18 17:30) Simethicone Chew (Mylicon Chew) (03/25/18 17:30) Acetaminophen 1000 Mg/100 Ml (Ofirmev 10 (03/25/18 17:30) Ibuprofen (Motrin) (03/25/18 17:30) Ketorolac Inj (Toradol Inj) (03/25/18 17:30) Ketorolac Inj (Toradol Inj) (03/25/18 23:00) Oxycodone-Acetamin 5-325 Mg (Percocet (03/25/18 17:30) Oxycodone-Acetamin 5-325 Mg (Percocet (03/25/18 17:30) Clindamycin 600 Mg/Ns Premix (Cleocin 60 (03/25/18 22:00) Docusate Sodium-Senna (Shreya-Colace) (03/25/18 17:30) Zolpidem (Ambien) (03/25/18 21:00) Jokxijb-Afssb-Aapcaeb Inj (M-M-R Ii Inj) (03/26/18 16:00) Jhkl-Pwo-Xwmidb (Booster) Inj (Boostrix (03/26/18 16:00) Complete Blood Count With Diff (03/26/18 06:00) Remove Urinary Catheter .ONCE (03/26/18 17:22) Cord Blood Gas (03/25/18 16:44) Ondansetron Odt (Zofran Odt) (03/25/18 17:30) Labs Laboratory Tests Test 03/25/18 15:20 03/25/18 16:44 White Blood Count 10.8 Red Blood Count 4.30 Hemoglobin 11.5 Hematocrit 34.7 Mean Corpuscular Volume 80.7 Mean Corpuscular Hemoglobin 26.7 Mean Corpuscular Hemoglobin Concent 33.1 Red Cell Distribution Width 15.8 Platelet Count 316 Mean Platelet Volume 7.7 Neutrophils (%) (Auto) 89.1 Lymphocytes (%) (Auto) 5.6 Monocytes (%) (Auto) 4.6 Eosinophils (%) (Auto) 0.4 Basophils (%) (Auto) 0.3 Neutrophils # (Auto) 9.6 Lymphocytes # (Auto) 0.6 Monocytes # (Auto) 0.5 Eosinophils # (Auto) 0.0 Basophils # (Auto) 0.0 CBC Comment DIFF FINAL Differential Comment Blood Gas Puncture Site CORD BLOOD Blood Gas Base Excess -1.6 Blood Gas Oxygen Saturation 38 Cord Blood HCO3 23 Cord Arterial Blood pH 7.36 Cord Arterial Blood PCO2 42 Cord Arterial Blood PO2 18 MDM MDM Medical Record Reviewed: Yes Interpretation(s) IUP @ 33 wks Placenta Previa with active bleeding tachycardia Narrative Course / MDM reviewed need for , risks of prematurity. pt understands and agrees with proceeding with delivery. Plan repeat t&c for 4 units PRBCs anesthesia and jarocho aware Diagnosis Diagnosis: Primary Impression: Vaginal bleeding in Additional Impressions: Placenta previa tachycardia affecting management of mother Sabino Bryant MD Mar 25, 2018 18:34
[2018-03-25] MEDS ORDERED: PROMETHAZINE INJ 25 MG/ML VIAL IM PRN (18:45)
--- NOTE | 2018-03-25 18:58 | PD.OB.DELI ---
Procedure Note Section Procedure Pre Op Diagnosis: (1) Vaginal bleeding in (2) Placenta previa (3) tachycardia affecting management of mother Post Op Diagnosis: (1) Vaginal bleeding in (2) Placenta previa (3) tachycardia affecting management of mother Performed by MD Gume Hayes MD Procedure: Repeat Low Transverse Sec Indication for delivery: Other (placenta previa with active bleeding) Informed consent obtained: For procedure Confirmed correct: Patient, Procedure, Time-out taken Anesthesia: Spinal Medication prior to procedure: As documented in eMAR Urinary catheter: Inserted using sterile technique, To dependent drainage Sterile preparation: Duraprep Position: Supine with wedge to left side Operative Features Skin Incision: Midline Uterine Incision: Low transverse w/knife / blunt ext Membranes Ruptured: Artificially, Amount of liquid (copious amounts of fluid) Presentation: Occiput anterior Delivery date: Mar 25, 2018 Delivery time: 16:42 Delivery of : Assisted (with vacuum) Infant: Female One Minute : 5 Five Minute : 7 Weight: 2805 Status of : Viable, Cord blood, Umbilical cord, Nursery present Placenta delivered: Intact, Sent to pathology Medications: Antibiotics, Oxytocin Estimated blood loss: 800 ml Procedure tolerated: Well Maternal Condition: Stable Condition: Stable Procedure in detail After informed consent was obtained, she consented. A midline vertical incision is made and carried down to the underlying layer of fascia. The fascia is incised in the midline and the incision is extended vertically. Margaret clamps were used to elevate the fascia. The peritoneum was identified and entered sharply. The bladder blade was inserted. The vesicouterine peritoneum was identified, tented open and entered sharply. The bladder blade was then reinserted. A transverse incision was made over the lower uterine segment to layer just exposing membranes; these were ruptured for clear fluid. The uterine incision was extended laterally digitally. The vertex is then delivered atraumatically with a vacuum through the incision followed by the remainder of the 's body. The cord is doubly clamped and cut. The is passed off to the waiting nursery team. Once this was done, attention is then turned back to the uterine field. The placenta is removed manually intact with three-vessel cord. The uterus was exteriorized, cleared of all clot and debris. The uterine incision was repaired using 1 Chromic suture in a running locked fashion. Once this was done attention was then turned back to the uterine incision which remained hemostatic. The uterus was returned to the abdominal cavity. The gutters were cleared of all clot and debris. The fascia was re-approximated using looped PDS suture in a running fashion. The subcutaneous fat is irrigated and made hemostatic and re-approximated using 0 Chromic suture. The skin is closed using rony. Sabino Bryant MD Mar 25, 2018 18:58
[2018-03-25] MEDS ORDERED: ZOLPIDEM TARTRATE 5 MG TAB PO PRN (21:00)
[2018-03-25] MEDS: SODIUM CHLORIDE 0.9% FLUSH 10 ML FLUSH IV FLUSH SCH (21:00)
[2018-03-25 22:27] LABS: BILIRUBIN, URINE NEG (NEG); BLOOD, URINE MOD (NEG); GLUCOSE,URINE 50 mg/dL (NEG); KETONE, URINE 20 mg/dL (NEG); MUCUS URINE FEW /lpf (OCC); NITRITE,URINE NEG (NEG); SQUAMOUS EPITHELIAL CELL URINE 1 /hpf (0-5); URINE COLOR Amber (YELLW/STRAW); URINE LEUKOCYTE ESTERASE NEG (NEG)
[2018-03-25] MEDS ORDERED: OXYTOCIN 30 UNITS-500ML PREMIX 500 ML IV PRN (22:30)
[2018-03-26] VITALS (7 sets, daily range): BP systolic 109–147; BP diastolic 67–81; PULSE 108–114; RESP 18–20; TEMP 98.3–98.5; O2SAT 98
[2018-03-26] MEDS: CLINDAMYCIN 600 MG/NS PREMIX 50 ML IV SCH ×2 (05:40)
[2018-03-26 07:05] LABS: AUTOMATED NEUTROPHIL # 8.5 TH/MM3 (1.8-7.7); BASOPHIL % 0.3 % (0.0-2.0); HEMATOCRIT 26.8 % (35.0-46.0); HEMOGLOBIN 8.9 GM/DL (11.6-15.3); LYMPH % 8.1 % (9.0-44.0); LYMPHOCYTE # 0.8 TH/MM3 (1.0-4.8); MEAN CELL VOLUME 80.5 FL (80.0-100.0); MEAN CORPUSCULAR HEMOGLOBIN 26.8 PG (27.0-34.0); MEAN CORPUSCULAR HGB CONC 33.3 % (32.0-36.0); MEAN PLATELET VOLUME 7.6 FL (7.0-11.0); MONO % 7.6 % (0.0-8.0); MONOCYTE # 0.8 TH/MM3 (0-0.9); PLATELET COUNT 277 TH/MM3 (150-450); RED BLOOD COUNT 3.34 MIL/MM3 (4.00-5.30); RED CELL DISTRIBUTION WIDTH 15.4 % (11.6-17.2); WHITE BLOOD COUNT 10.1 TH/MM3 (4.0-11.0)
--- NOTE | 2018-03-26 07:26 | HHI.OB ---
Subjective Post Operative Day: 1 Remarks Postoperative day # 1. Pain well-controlled on medication. Incision clean, dry, and intact, not draining. Lochia more than a period. Denies dysuria. No breast tenderness. She is feeding the baby via pumped breast milk. baby is in the NICU due to premature status. Appetite good. No nausea or vomiting. No flatus. No bowel movement. Ambulating well. Denies fever, chills, cough, shortness of breath, chest pain, and calf pain. Otherwise, she is doing well this morning and has no other complaints. (Eko,Ashley TRAN R2) Objective Vitals/I&O Vital Signs Date Time Temp Pulse Resp B/P (MAP) Pulse Ox O2 Delivery O2 Flow Rate FiO2 03/26/18 05:00 98.3 108 20 133/81 (98) 03/26/18 01:35 98.5 109 18 110/67 (81) 98 03/25/18 21:30 140/66 (90) 03/25/18 21:30 112 20 03/25/18 21:30 98.5 03/25/18 19:15 98.0 03/25/18 19:15 115 15 124/56 (78) 100 03/25/18 19:00 129/61 (83) 03/25/18 19:00 128 03/25/18 19:00 16 03/25/18 18:45 130 03/25/18 18:45 124 113/57 (75) 100 03/25/18 18:44 20 03/25/18 18:30 115/58 (77) 03/25/18 18:15 18 03/25/18 18:15 19 03/25/18 18:15 120 12 100 03/25/18 18:00 114/61 (78) 03/25/18 17:58 118 20 100 03/25/18 17:45 120 22 102/51 (68) 99 03/25/18 17:30 99.8 99 03/25/18 17:30 111 20 110/53 (72) 03/25/18 16:05 137 03/25/18 16:02 138 137/63 (87) 03/25/18 16:00 100 03/25/18 16:00 133 03/25/18 15:55 136 100 6/24/18 15:55 135 03/25/18 15:50 139 03/25/18 15:50 139 100 03/25/18 15:45 134 100 03/25/18 15:45 136 03/25/18 15:40 135 03/25/18 15:40 136 03/25/18 15:39 135 122/64 (83) 03/25/18 15:35 139 03/25/18 15:35 137 03/25/18 15:30 40 03/25/18 15:30 133 (Eko,Ashley TRAN R2) Result Diagram: 03/26/18 0644 Objective Remarks GENERAL: Well-nourished, well-developed patient. CARDIOVASCULAR: Regular rate and rhythm without murmurs, gallops, or rubs. RESPIRATORY: Breath sounds equal bilaterally. No accessory muscle use. ABDOMEN/GI: Abdomen soft, non-tender, bowel sounds present. Incision: Clean, dry and intact. Fundus: Firm, non-tender at umbilicus. GENITOURINARY: Moderate bleeding. EXTREMITIES: No cyanosis or edema, non-tender, without signs of DVT. Medications and IVs Current Medications Medications (Trade) Dose Ordered Sig/Carole Route Start Time Stop Time Status Last Admin (Bicitra Liq) 30 ml MANUFACTURING PROJECT ENGINEER PO 03/25/18 17:15 03/29/18 17:14 Lactated Ringer's 1,000 ml @ 100 mls/hr Q10H IV 03/25/18 22:22 03/26/18 18:21 Oxytocin 500 ml @ 100 mls/hr UNSCH X1 PRN IV 03/25/18 22:30 03/26/18 22:29 03/26/18 01:59 (NS Flush) 2 ml BID IV FLUSH 03/25/18 21:00 (NS Flush) 2 ml UNSCH PRN IV FLUSH 03/25/18 17:30 (Mylicon Chew) 80 mg QID PRN PO 03/25/18 17:30 (Motrin) 600 mg Q6H PRN PO 03/25/18 17:30 (Toradol Inj) 60 mg UNSCH X1 PRN IM 03/25/18 17:30 03/26/18 17:29 (Toradol Inj) 30 mg Q6H PRN IM 03/25/18 23:00 03/26/18 22:59 (Percocet 5-325 Mg) 1 tab Q4H PRN PO 03/25/18 17:30 (Percocet 5-325 Mg) 2 tab Q4H PRN PO 03/25/18 17:30 (Shreya-Colace) 2 tab Q12H PRN PO 03/25/18 17:30 (Ambien) 5 mg HS PRN PO 03/25/18 21:00 (M-M-R Ii Inj) 0.5 ml ONCE ONCE SQ 03/26/18 16:00 03/26/18 16:01 (Boostrix Inj) 0.5 ml ONCE ONCE IM 03/26/18 16:00 03/26/18 16:01 (Zofran Odt) 4 mg Q6H PRN PO 03/25/18 17:30 (Phenergan Inj) 25 mg Q6H PRN IM 03/25/18 18:45 ([facility]) NO SYSTEMIC NARCOTICS TO BE GIVEN FO... UNSCH PRN .XX 03/25/18 16:15 03/26/18 16:14 (Narcan Inj) 0.4 mg UNSCH PRN IV PUSH 03/25/18 16:15 03/26/18 16:14 (Benadryl Inj) 25 mg Q6H PRN IV PUSH 03/25/18 16:15 03/26/18 16:14 03/25/18 23:01 (Benadryl) 50 mg Q6H PRN PO 03/25/18 16:15 03/26/18 16:14 03/26/18 04:56 ([facility]) ALL NURSING DEPARTMENTS UNSCH PRN .XX 03/25/18 16:15 03/26/18 16:14 (Ashley Gao MD R2) Objective Remarks Inc:clean/dry/ intact with rony no drainage noted (Sabino Bryant MD) Assessment/Plan Problem List: (1) Placenta previa ICD Codes: O44.00 - Complete placenta previa NOS or without hemorrhage, unspecified trimester (2) hemorrhage ICD Codes: O72.1 - Other immediate hemorrhage Assessment and Plan 27 y/o female who is POD# 1 s/p CS for bleeding placenta previa and premature rupture of membranes 1. -Continue routine care -Percocet and Motrin PRN pain -Pericolase PRN for constipation -Encouraged OOB. Advised pelvic rest for 6 wks -Will need a follow-up appointment within 1 week for incision check -Re: ctrl - she is considering Nexplanon 2. - hemorrhage - has required 2 IV bags of Pitocin -H/H 8.9/26.8 -Tachycardic to the 110's on exam but has been chronically tachycardic -Will continue to monitor and intervene with medication if necessary Discussed with Dr. Bryant Discharge Planning Plan to discharge in 2 days. Patient would like a stay-close room if possible (Ashley Gao MD R2) Attending Attestation pt seen and examined. doubt pph, will repeat h/h at 12 pm. pt w/o s/sx of anemia (Sabino Bryant MD) Ashley Gao MD R2 Mar 26, 2018 07:26 Sabino Bryant MD Mar 26, 2018 09:44
[2018-03-26] MEDS: ENOXAPARIN SODIUM 40 MG/0.4 ML SYRINGE SQ SCH (11:00)
[2018-03-26] MEDS: oxyCODONE/ACETAMINOPHEN 5 MG/325 MG TAB PO PRN ×2 (13:04→20:17)
[2018-03-26 13:25] LABS: HEMATOCRIT 27.7 % (35.0-46.0); HEMOGLOBIN 9.2 GM/DL (11.6-15.3); MEAN CELL VOLUME 81.7 FL (80.0-100.0); MEAN CORPUSCULAR HEMOGLOBIN 27.2 PG (27.0-34.0); MEAN CORPUSCULAR HGB CONC 33.3 % (32.0-36.0); MEAN PLATELET VOLUME 7.5 FL (7.0-11.0); PLATELET COUNT 283 TH/MM3 (150-450); RED BLOOD COUNT 3.39 MIL/MM3 (4.00-5.30); RED CELL DISTRIBUTION WIDTH 15.8 % (11.6-17.2); WHITE BLOOD COUNT 8.5 TH/MM3 (4.0-11.0)
[2018-03-26] MEDS ORDERED: MEASLES, MUMPS, RUBELLA VACCINE 0.5 ML VIAL SQ ONE (16:00)
[2018-03-26] MEDS ORDERED: DIPHTH/TETANUS/ACEL PERTUSSIS (BOOSTER) 0.5 ML VIAL/PFS IM ONE (16:00)
[2018-03-26] MEDS: DOCUSATE SODIUM 50 MG/SENNA 8.6 MG TAB PO PRN (20:17)
[2018-03-27] MEDS: oxyCODONE/ACETAMINOPHEN 5 MG/325 MG TAB PO PRN ×6 (00:02→20:55)
[2018-03-27] MEDS ORDERED: MAGNESIUM HYDROXIDE SUSP 30 ML CUP PO PRN (05:30)
[2018-03-27] MEDS ORDERED: BISACODYL 10 MG SUPP RECTAL PRN (05:30)
--- NOTE | 2018-03-27 07:10 | HHI.OB ---
Subjective Post Operative Day: 2 Remarks Postoperative day # 2. Pain not well-controlled on medication. Incision clean, dry, and intact, not draining. Lochia much reduced. Denies dysuria. No breast tenderness. She is feeding the baby via pumped breast milk. baby is in the NICU due to premature status. Appetite good. No nausea or vomiting. Positive flatus. No bowel movement. She is having some issues with urination that may be due to being under anesthesia and having a chen. Ambulating well. Denies fever, chills, cough, shortness of breath, chest pain, and calf pain. Otherwise , she is doing well this morning and has no other complaints. Objective Vitals/I&O Vital Signs Date Time Temp Pulse Resp B/P (MAP) Pulse Ox O2 Delivery O2 Flow Rate FiO2 03/26/18 23:00 98.3 03/26/18 23:00 114 20 109/75 (86) 98 03/26/18 20:00 98.3 114 18 147/80 (102) 98 03/26/18 18:05 18 03/26/18 10:35 20 03/26/18 09:25 18 Result Diagram: 03/26/18 1223 Objective Remarks GENERAL: Well-nourished, well-developed patient. CARDIOVASCULAR: Regular rate and rhythm without murmurs, gallops, or rubs. RESPIRATORY: Breath sounds equal bilaterally. No accessory muscle use. ABDOMEN/GI: Abdomen soft, non-tender, bowel sounds present. Incision: Clean, dry and intact vertical skin incision with rony. Fundus: Firm, non-tender at umbilicus. GENITOURINARY: Mild bleeding. EXTREMITIES: No cyanosis or edema, non-tender, without signs of DVT. Medications and IVs Current Medications Medications (Trade) Dose Ordered Sig/Carole Route Start Time Stop Time Status Last Admin (Bicitra Liq) 30 ml COD CLERK PO 03/25/18 17:15 03/29/18 17:14 (NS Flush) 2 ml BID IV FLUSH 03/25/18 21:00 03/25/18 21:00 (NS Flush) 2 ml UNSCH PRN IV FLUSH 03/25/18 17:30 (Mylicon Chew) 80 mg QID PRN PO 03/25/18 17:30 (Motrin) 600 mg Q6H PRN PO 03/25/18 17:30 (Percocet 5-325 Mg) 1 tab Q4H PRN PO 03/25/18 17:30 03/26/18 08:01 (Percocet 5-325 Mg) 2 tab Q4H PRN PO 03/25/18 17:30 03/27/18 04:09 (Shreya-Colace) 2 tab Q12H PRN PO 03/25/18 17:30 03/26/18 20:17 (Ambien) 5 mg HS PRN PO 03/25/18 21:00 (Zofran Odt) 4 mg Q6H PRN PO 03/25/18 17:30 (Phenergan Inj) 25 mg Q6H PRN IM 03/25/18 18:45 (Lovenox Inj) 40 mg Q24H SQ 03/26/18 11:00 (Shreya-Colace) 1 tab BID PO 03/27/18 09:00 (Milk Of Magnesia Liq) 30 ml Q12H PRN PO 03/27/18 05:30 (Dulcolax Supp) 10 mg DAILY PRN RECTAL 03/27/18 05:30 Assessment/Plan Problem List: (1) Placenta previa ICD Codes: O44.00 - Complete placenta previa NOS or without hemorrhage, unspecified trimester (2) hemorrhage ICD Codes: O72.1 - Other immediate hemorrhage Assessment and Plan 27 y/o female who is POD# 2 s/p CS for bleeding placenta previa and premature rupture of membranes 1. -Continue routine care -Percocet and Motrin PRN pain -Pericolase PRN for constipation -Encouraged OOB. Advised pelvic rest for 6 wks -Will need a follow-up appointment within 1 week for incision check -Re: ctrl - she is considering Nexplanon 2. - hemorrhage - much improved -H/H 8.9/26.8 in the morning to 9.2/27.7 at noon -Tachycardic to the 110's on exam but has been chronically tachycardic -Will continue to monitor and intervene with medication if necessary 3. History of DVT and Protein S deficiency -On Lovenox for DVT prophylaxis -Heme consult for long-term anticoagulation recommendations, if any Discussed with Dr. So Discharge Planning Plan to discharge in 1 day. Patient would like a stay-close room if possible Ashley Gao MD R2 Mar 27, 2018 07:10
[2018-03-27] MEDS ORDERED: IBUPROFEN 800 MG TAB PO PRN (07:15)
[2018-03-27 08:00] VITALS: BP 133/72; PULSE 110; RESP 20; O2SAT 96
[2018-03-27] MEDS: DOCUSATE SODIUM 50 MG/SENNA 8.6 MG TAB PO SCH ×2 (08:16→20:56)
[2018-03-27] MEDS: ENOXAPARIN SODIUM 40 MG/0.4 ML SYRINGE SQ SCH (11:00)
[2018-03-27] MEDS: IBUPROFEN 400 MG TAB PO PRN ×2 (18:08→22:03)
[2018-03-27] MEDS: SODIUM CHLORIDE 0.9% FLUSH 10 ML FLUSH IV FLUSH SCH (21:00)
[2018-03-27 22:38] VITALS: BP 118/84; PULSE 112; RESP 20; TEMP 98
[2018-03-28] MEDS: oxyCODONE/ACETAMINOPHEN 5 MG/325 MG TAB PO PRN ×5 (00:56→21:32)
[2018-03-28] MEDS: IBUPROFEN 400 MG TAB PO PRN ×4 (04:51→21:32)
[2018-03-28] MEDS ORDERED: PERI PO (06:58)
[2018-03-28] MEDS ORDERED: OXYC1TAB63 PO (06:58)
--- NOTE | 2018-03-28 06:59 | HHI.DCPOC ---
Discharge Care Plan Diagnosis: (1) delivery delivered (2) Premature delivery before 37 weeks (3) Placenta previa (4) Vaginal bleeding in (5) hemorrhage Report Symptoms to Your Doctor -Temperature above 100.5 degrees -Redness, of incision or excessive or foul smelling drainage -Unusual pain or calf pain -Increased vaginal bleeding -Painful or difficulty urinating -Feelings of extreme sadness or anxiety after 2 weeks Goals to Promote Your Health * To prevent worsening of your condition and complications * To maintain your health at the optimal level Directions to Meet Your Goals Take your medications as prescribed Follow your dietary instruction Follow activity as directed Ensure plenty of rest for recovery Drink fluids for hydration Keep your appointments as scheduled Take your immunizations and boosters as scheduled If your symptoms worsen call your PCP, if no PCP go to Urgent Care Center or Emergency Room Smoking is Dangerous to Your Health. Avoid second hand smoke Call the 24-hour crisis hotline for domestic abuse at Ashley Gao MD R2 Mar 28, 2018 06:59
--- NOTE | 2018-03-28 08:39 | HHI.OB ---
Subjective Post Operative Day: 3 Remarks Postoperative day # 3. Pain not well-controlled on medication. Incision clean, dry, and intact, not draining. Lochia much reduced. Denies dysuria. No breast tenderness. She is feeding the baby via pumped breast milk. Baby is in the NICU due to premature status. Appetite good. No nausea or vomiting. Positive flatus earlier. No bowel movement. She is still having some issues with urination that may be due to being under anesthesia and having a Vázquez - takes a while for her to void. Ambulating well. Denies fever, chills, cough, shortness of breath, chest pain, and calf pain. Otherwise, she is doing well this morning and has no other complaints. Objective Vitals/I&O Vital Signs Date Time Temp Pulse Resp B/P (MAP) Pulse Ox O2 Delivery O2 Flow Rate FiO2 03/28/18 00:56 18 03/27/18 22:38 98.0 112 20 118/84 (95) Result Diagram: 03/26/18 1223 Objective Remarks GENERAL: Well-nourished, well-developed patient. CARDIOVASCULAR: Regular rate and rhythm without murmurs, gallops, or rubs. RESPIRATORY: Breath sounds equal bilaterally. No accessory muscle use. ABDOMEN/GI: Abdomen soft, non-tender, bowel sounds present. Incision: Clean, dry and intact vertical skin incision with rony. Fundus: Firm, non-tender at umbilicus. GENITOURINARY: Mild bleeding. EXTREMITIES: No cyanosis or edema, non-tender, without signs of DVT. Medications and IVs Current Medications Medications (Trade) Dose Ordered Sig/Carole Route Start Time Stop Time Status Last Admin (Bicitra Liq) 30 ml [employer]OR R[employer]ATION PO 03/25/18 17:15 03/29/18 17:14 (NS Flush) 2 ml BID IV FLUSH 03/25/18 21:00 03/25/18 21:00 (NS Flush) 2 ml UNSCH PRN IV FLUSH 03/25/18 17:30 (Mylicon Chew) 80 mg QID PRN PO 03/25/18 17:30 (Percocet 5-325 Mg) 1 tab Q4H PRN PO 03/25/18 17:30 03/26/18 08:01 (Percocet 5-325 Mg) 2 tab Q4H PRN PO 03/25/18 17:30 03/28/18 04:52 (Shreya-Colace) 2 tab Q12H PRN PO 03/25/18 17:30 03/26/18 20:17 (Ambien) 5 mg HS PRN PO 03/25/18 21:00 (Zofran Odt) 4 mg Q6H PRN PO 03/25/18 17:30 (Phenergan Inj) 25 mg Q6H PRN IM 03/25/18 18:45 (Lovenox Inj) 40 mg Q24H SQ 03/26/18 11:00 (Shreya-Colace) 1 tab BID PO 03/27/18 09:00 03/27/18 20:56 (Milk Of Magnesia Liq) 30 ml Q12H PRN PO 03/27/18 05:30 (Dulcolax Supp) 10 mg DAILY PRN RECTAL 03/27/18 05:30 (Motrin) 400 mg Q4H PRN PO 03/27/18 17:30 03/28/18 04:51 Assessment/Plan Problem List: (1) Placenta previa ICD Codes: O44.00 - Complete placenta previa NOS or without hemorrhage, unspecified trimester Qualifiers: Qualified Codes: O44.03 - Complete placenta previa nos or without hemorrhage , third trimester (2) hemorrhage ICD Codes: O72.1 - Other immediate hemorrhage Qualifiers: Qualified Codes: O72.1 - Other immediate hemorrhage Assessment and Plan 27 y/o female who is POD# 3 s/p CS for bleeding placenta previa and premature rupture of membranes 1. -Continue routine care -Percocet and Motrin PRN pain -Pericolase PRN for constipation -Encouraged OOB. Advised pelvic rest for 6 wks -Will need a follow-up appointment 1 week after surgery for incision check -Re: ctrl - she is considering Nexplanon 2. hemorrhage - resolved -Tachycardic to the 110's but has been chronically tachycardic - no shortness of breath -Will continue to monitor 3. History of DVT and Protein S deficiency -On Lovenox for DVT prophylaxis - however patient refused -Heme consult for long-term anticoagulation * Appreciate recommendations Discussed with Dr. Bryant Discharge Planning Plan to discharge today or tomorrow. Patient would like a stay-close room if possible Eko,Ashley MD R2 Mar 28, 2018 08:39
[2018-03-28] MEDS: DOCUSATE SODIUM 50 MG/SENNA 8.6 MG TAB PO PRN ×2 (10:49→21:33)
[2018-03-28] MEDS: ENOXAPARIN SODIUM 40 MG/0.4 ML SYRINGE SQ SCH (10:52)
--- NOTE | 2018-03-28 13:53 | PD.ONC.PN ---
Subjective Subjective Remarks Afebrile overnight. Patient resting in bed in [facility]. Denies chest pain or shortness of breath. continues to have vaginal spotting but otherwise no bleeding. Objective Data Date Time Temp Pulse Resp B/P (MAP) Pulse Ox O2 Delivery O2 Flow Rate FiO2 03/28/18 00:56 18 03/27/18 22:38 98.0 112 20 118/84 (95) Result Diagram: 03/26/18 1223 Administered Medications Medications (Trade) Dose Ordered Sig/Carole Route PRN Reason Start Time Stop Time Status Last Admin Dose Admin Sodium Chloride (NS Flush) 2 ml BID IV FLUSH 03/25/18 21:00 03/25/18 21:00 Oxycodone/ Acetaminophen (Percocet 5-325 Mg) 1 tab Q4H PRN PO PAIN SCALE 4 TO 5 03/25/18 17:30 03/26/18 08:01 Oxycodone/ Acetaminophen (Percocet 5-325 Mg) 2 tab Q4H PRN PO PAIN SCALE 6 TO 10 03/25/18 17:30 03/28/18 10:50 Senna/Docusate Sodium (Shreya-Colace) 2 tab Q12H PRN PO MODERATE CONSTIPATION 03/25/18 17:30 03/28/18 10:49 Magnesium Hydroxide (Milk Of Magnesia Liq) 30 ml Q12H PRN PO Mild constipation 03/27/18 05:30 03/28/18 10:49 Ibuprofen (Motrin) 400 mg Q4H PRN PO PAIN SCALE 1 TO 3 03/27/18 17:30 03/28/18 10:50 Objective Remarks GENERAL: Pleasant young woman, sitting up on side of bed in [facility]. SKIN: Warm and dry. HEAD: Normocephalic. EYES: No injection or drainage. NECK: Supple, trachea midline. CARDIOVASCULAR: +S1/S2, mild tachycardia. RESPIRATORY: Breath sounds equal bilaterally. No accessory muscle use. GASTROINTESTINAL: Abdomen soft, non-tender, nondistended. EXTREMITIES: No cyanosis NEUROLOGICAL: awake and alert. normal speech. moving all extremities. Assessment/Plan Assessment 27y/o female with history of VTE after previous ~ 2 years ago. Hematology consulted for ac recommendations. Plan 1. history of VTE: patient completed a 6 month course of anticoagulation after her blood clot two years ago. recent review of records showed no protein S deficiency and an essentially normal hypercoagulable workup. Hematology therefore recommends placing patient on Lovenox 40mg SQ daily (prophylactic dose ) while inpatient and no anticoagulation once discharged from the hospital. d/w patient, Dr. Ashley Gao, Dr. Grady. Magalis Munoz Mar 28, 2018 13:52
[2018-03-28 22:30] VITALS: RESP 18
[2018-03-29] MEDS: IBUPROFEN 400 MG TAB PO PRN ×3 (01:58→13:15)
[2018-03-29] MEDS: oxyCODONE/ACETAMINOPHEN 5 MG/325 MG TAB PO PRN ×3 (01:59→13:15)
--- NOTE | 2018-03-29 06:39 | HHI.OB ---
Subjective Post Operative Day: 4 Remarks Postoperative day # 4. Pain well-controlled on medication. Incision clean, dry, and intact, not draining. Lochia much reduced. Denies dysuria. No breast tenderness. She is feeding the baby via pumped breast milk. Baby is in the NICU due to premature status. Appetite good. No nausea or vomiting. Positive flatus earlier. No bowel movement yet but she feels that she would have one today. She is voiding. Ambulating well. Denies fever, chills, cough, shortness of breath, chest pain, and calf pain. Otherwise, she is doing well this morning and has no other complaints. Objective Vitals/I&O Vital Signs Date Time Temp Pulse Resp B/P (MAP) Pulse Ox O2 Delivery O2 Flow Rate FiO2 03/28/18 22:30 18 03/28/18 22:30 18 Result Diagram: 03/26/18 1223 Objective Remarks GENERAL: Well-nourished, well-developed patient. CARDIOVASCULAR: Regular rate and rhythm without murmurs, gallops, or rubs. RESPIRATORY: Breath sounds equal bilaterally. No accessory muscle use. ABDOMEN/GI: Abdomen soft, non-tender, bowel sounds present. Incision: Clean, dry and intact vertical skin incision with rony. Fundus: Firm, non-tender at umbilicus. GENITOURINARY: Mild bleeding. EXTREMITIES: No cyanosis or edema, non-tender, without signs of DVT. Medications and IVs Current Medications Medications (Trade) Dose Ordered Sig/Carole Route Start Time Stop Time Status Last Admin (Bicitra Liq) 30 ml FRONT DESK PERSON PO 03/25/18 17:15 03/29/18 17:14 (NS Flush) 2 ml BID IV FLUSH 03/25/18 21:00 03/25/18 21:00 (NS Flush) 2 ml UNSCH PRN IV FLUSH 03/25/18 17:30 (Mylicon Chew) 80 mg QID PRN PO 03/25/18 17:30 (Percocet 5-325 Mg) 1 tab Q4H PRN PO 03/25/18 17:30 03/26/18 08:01 (Percocet 5-325 Mg) 2 tab Q4H PRN PO 03/25/18 17:30 03/29/18 05:48 (Shreya-Colace) 2 tab Q12H PRN PO 03/25/18 17:30 03/28/18 21:33 (Ambien) 5 mg HS PRN PO 03/25/18 21:00 (Zofran Odt) 4 mg Q6H PRN PO 03/25/18 17:30 (Phenergan Inj) 25 mg Q6H PRN IM 03/25/18 18:45 (Lovenox Inj) 40 mg Q24H SQ 03/26/18 11:00 (Milk Of Magnesia Liq) 30 ml Q12H PRN PO 03/27/18 05:30 03/28/18 10:49 (Dulcolax Supp) 10 mg DAILY PRN RECTAL 03/27/18 05:30 (Motrin) 400 mg Q4H PRN PO 03/27/18 17:30 03/29/18 05:48 Assessment/Plan Problem List: (1) Placenta previa ICD Codes: O44.00 - Complete placenta previa NOS or without hemorrhage, unspecified trimester Qualifiers: Qualified Codes: O44.03 - Complete placenta previa nos or without hemorrhage , third trimester (2) hemorrhage ICD Codes: O72.1 - Other immediate hemorrhage Qualifiers: Qualified Codes: O72.1 - Other immediate hemorrhage Assessment and Plan 27 y/o female who is POD# 4 s/p CS for bleeding placenta previa and premature rupture of membranes 1. -Continue routine care -Percocet and Motrin PRN pain -Pericolase PRN for constipation -Encouraged OOB. Advised pelvic rest for 6 wks -Will need a follow-up appointment 1 week after surgery for incision check -Re: ctrl - she is considering Nexplanon 2. hemorrhage - resolved -Tachycardic to the 110's but has been chronically tachycardic - no shortness of breath 3. History of DVT and Protein S deficiency -On Lovenox for DVT prophylaxis - however patient refused -Heme consulted for long-term anticoagulation * Recommends Lovenox 40mg sq while inpatient * NO anticoagulation recommended after discharge Discussed with Dr. Muro Discharge Planning Plan to discharge home today Ashley Gao MD R2 Mar 29, 2018 6:38 am
[2018-03-29] MEDS: ENOXAPARIN SODIUM 40 MG/0.4 ML SYRINGE SQ SCH (11:00)
[2018-03-29] MEDS: DOCUSATE SODIUM 50 MG/SENNA 8.6 MG TAB PO PRN (13:14)
--- NOTE | 2018-03-31 01:33 | PD.CONS ---
History of Present Illness Service Oncology seen on 03/27/18 Consult Requested By Primary Care Physician No Primary Care Physician Diagnoses: Review of Systems Except as stated in HPI: all other systems reviewed are Neg Past Family Social History Allergies: Coded Allergies: amoxicillin (Verified Allergy, Severe, Hives, 11/09/17) Penicillins (Verified Allergy, Unknown, Hives, 11/09/17) Physical Exam Physical Exam GENERAL: This is a well-nourished, well-developed patient, in no apparent distress. SKIN: No rashes, ecchymoses or lesions. Cool and dry. HEAD: Atraumatic. Normocephalic. No temporal or scalp tenderness. EYES: Pupils equal round and reactive. Extraocular motions intact. No scleral icterus. No injection or drainage. ENT: Nose without bleeding, purulent drainage or septal hematoma. Throat without erythema, tonsillar hypertrophy or exudate. Uvula midline. Airway patent. NECK: Trachea midline. No JVD or lymphadenopathy. Supple, nontender, no meningeal signs. CARDIOVASCULAR: Regular rate and rhythm without murmurs, gallops, or rubs. RESPIRATORY: Clear to auscultation. Breath sounds equal bilaterally. No wheezes , rales, or rhonchi. GASTROINTESTINAL: Abdomen soft, non-tender, nondistended. No hepato-splenomegaly , or palpable masses. No guarding. MUSCULOSKELETAL: Extremities without clubbing, cyanosis, or edema. No joint tenderness, effusion, or edema noted. No calf tenderness. Negative Homans sign bilaterally. NEUROLOGICAL: Awake and alert. Cranial nerves II through XII intact. Motor and sensory grossly within normal limits. Five out of 5 muscle strength in all muscle groups. Normal speech. Assessment and Plan Assessment and Plan 27 y/o with history of DVT in the setting of many years ago. Hypercoagulable w/u was negative. Now pos- Recs: - prophylactic Lovenox during hospital stay - Ambulate - SCDS while in bed - No ferry terminal agent anticoagulation Pineda Grady MD Mar 31, 2018 01:33
== END 2018-03-29 13:37 | disposition home or self-care (01) | DRG 765 ==
LOC: HOBED 14:53 → H2EB 15:31 → H1EA 20:20
PROVIDERS: ADMIT Obstetrics & Gynecology; ATTEND Obstetrics & Gynecology
PROC: 10D00Z1 Extraction of Products of Conception, Low, Open Approach (ICD-10-PCS; principal; 2018-03-25)
DX: O44.13 Complete placenta previa with hemorrhage, third trimester (principal); O60.14X0 Preterm labor third trimester with preterm delivery third trimester, not applicable or unspecified; D68.59 Other primary thrombophilia; O99.12 Other diseases of the blood and blood-forming organs and certain disorders involving the immune mechanism complicating childbirth; O42.90 Premature rupture of membranes, unspecified as to length of time between rupture and onset of labor, unspecified weeks of gestation; O34.211 Maternal care for low transverse scar from previous cesarean delivery; O72.1 Other immediate postpartum hemorrhage; R00.0 Tachycardia, unspecified; O76 Abnormality in fetal heart rate and rhythm complicating labor and delivery; Z37.0 Single live birth; Z3A.33 33 weeks gestation of pregnancy; Z86.718 Personal history of other venous thrombosis and embolism; Z23 Encounter for immunization
CPT/HCPCS: 59025; 80307; 81001; 82805; 84112; 85025; 85027; 86850; 86900; 86901; 86920; 88307; J0131; J1100; J1200; J2370; J2405; J2590; J7120; Q0163